=== PATIENT | female | born 1985 | race Caucasian/White ===

== ENCOUNTER 2016-04-06 17:44 | Emergency (ER) | payer OTHER ==
[~2016-04-06] VITALS: Ht 165.1 cm; Wt 85.1 kg
[~2016-04-06 17:44] MED LIST: MTR600X PO
[2016-04-06 17:53] VITALS: TEMP 36.8; Ht 165.1 cm; Wt 85.1 kg
[2016-04-06 18:59] LABS: PREG INTERNAL NEGATIVE QC NEG CLEAR BACKGROUND; PREG INTERNAL POSITIVE QC POS CONTROL LINE
[2016-04-06 19:08] VITALS: BP 135/88; PULSE 86; O2SAT 96
--- NOTE | 2016-04-07 15:47 | EMERGENCY ROOM VISIT NOTE ---
ED Visit Note First contact with patient: 17:53 Chief Complaint: I would like a blood test. History of Present Illness: Ms. Enrique is a 30-year-old white female who ambulates into the ED accompanied by her and children requesting a serum test. Patient reports she is 3 and para 2. Her last delivery was 11/01/2005. She reports after her delivery her normal menstrual cycle started and then stopped in mid January. She reports she has not had a menstrual cycle since that time. She is taken 3 home tests and they were negative. She reports she was into see her [facility] and they recommended that she start control to help regulate her hormones. She reports they did not do a serum and she is concerned because her last test was normal before her last child and only the serum was positive. Currently she is requesting a serum test. She is not having any complaints except for her missed period and is not having any symptoms or pain. Physical Examination: Vital Signs: Date Time Temp Pulse Resp B/P Pulse Ox O2 Delivery O2 Flow Rate FiO2 04/06/16 19:08 86 18 135/88 96 04/06/16 17:53 36.8 100 20 142/95 98 Room Air GENERAL: 30-year-old female in no acute distress, nontoxic-appearing, afebrile and hemodynamically stable. NEUROLOGICAL: Awake, alert and oriented to person, place and time. Answering questions appropriately and following commands. ED Course: Patient is assessed as noted above. Laboratory Testing: Test 04/06/16 18:05 Range/Units Human Chorionic Gonadotropin, Qual NEG NEG Clinical Impression: Negative test. Disposition: Patient discharged home in stable condition accompanied by her ; prior to departure she reported she continue tab no symptoms. Plan: Patient was encouraged to follow-up with her [facility] [employer] [facility] physician for her change in menstrual cycles. Patient was encouraged return the ED for any vaginal bleeding, abdominal pain or any new/concerning symptoms.
== END 2016-04-06 19:08 | disposition home or self-care (01) ==
LOC: C.EDB 17:44 → C.EDD 19:08
DX: Z32.02 Encounter for pregnancy test, result negative (principal); Z98.890 Other specified postprocedural states

== ENCOUNTER 2016-09-06 19:46 | Emergency (ER) | payer OTHER ==
[~2016-09-06] VITALS: Ht 170.2 cm; Wt 85.8 kg
[2016-09-06 19:51] VITALS: TEMP 36.8; Ht 170.2 cm; Wt 85.8 kg
--- NOTE | 2016-09-06 20:11 | EMERGENCY ROOM VISIT NOTE ---
History Report prepared by Carina: Rosi Rogel Under the Supervision of: Dr. Jules Guaman D.O. First contact with patient: 19:54 Chief Complaint: TEST REQUEST Stated Complaint: NEED A BLOOD TEST TO FIND OUT IF History of Present Illness The patient is a 31 year old female who presents to the Emergency Room with a request for a test, today. The patient states that her last menstrual cycle was August 03. She states that she has a history of five previous pregnancies, noting that she has two children, had two abortions, and 1 miscarriage. The patient states that when she was recently with her daughter, she took 12-15 home tests that were all negative, but when she came to the emergency department and had a blood test, she tested positive. She denies being on any daily medications. The patient states that she has been feeling nauseous. She states that she does not follow with a primary care physician. The patient states that she follows with Rosa Lombardi OB/ [employer]. Source of History: patient Onset: today Position: other (global) Quality: other ( test request) Associated Symptoms: + nausea Review of Systems See HPI for pertinent positives & negatives. A total of 10 systems reviewed and were otherwise negative. Past Medical & Surgical Medical Problems: (1) and not yet delivered in first trimester (2) Premature rupture of membranes Family History Diabetes mellitus Hypertension Social History Smoking Status: Current Every Day Smoker Alcohol Use: none Housing Status: lives with family Occupation Status: employed Current/Historical Medications No Active Prescriptions or Reported Meds Allergies Coded Allergies: No Known Allergies (Unverified , 10/30/15) Physical Exam Vital Signs Date Time Temp Pulse Resp B/P (MAP) Pulse Ox O2 Delivery O2 Flow Rate FiO2 09/06/16 21:03 101 18 113/75 98 Room Air 09/06/16 19:51 36.8 86 16 136/84 96 Room Air Physical Exam GENERAL: Patient is awake, alert, and in no acute distress. Patient is resting comfortably and showing no signs of anxiety EYES: The conjunctivae are clear. The pupils are round and reactive. EARS, NOSE, MOUTH AND THROAT: The nose is without any evidence of any deformity. Mucous membranes are moist tongue is midline NECK: The neck is nontender and supple. RESPIRATORY: Normal respiratory effort is noted there is no evidence of wheezing rhonchi or rales CARDIOVASCULAR: Regular rate and rhythm noted there no murmurs rubs or gallops normal S1 normal S2 GASTROINTESTINAL: The abdomen is soft. Bowel sounds are present in all quadrants. Abdomen is nontender MUSCULOSKELETAL/EXTREMITIES: There is no evidence of gross deformity full range of motion is noted in the hips and shoulders SKIN: There is no obvious evidence of any rash. There are no petechiae, pallor or cyanosis noted. NEUROLOGIC: Patient is awake alert and oriented x3 strength is symmetric patellar reflexes are 2+ bilaterally Medical Decision & Procedures Laboratory Results Test 09/06/16 19:57 Human Chorionic Gonadotropin, Qual NEG (NEG) Laboratory results per my review. ED Course 1957: The patient was evaluated in room C9. A complete history and physical examination were performed. 2042: I reevaluated the patient and she is resting comfortably. I discussed the exam findings with her and I discussed the treatment plan. She verbalized complete understating and agreement. She is ready to go home. Medical Decision Nursing notes reviewed. The patient is a 31-year-old female who presented to the emergency department requesting a blood test for . The patient thought she was because her period was late. The patient did not have a physical exam consistent with an acute surgical abdomen. Bedside ultrasound did not reveal any intrauterine and her blood test was negative for . The patient was encouraged to stop smoking and follow-up with her doctor. She was also encouraged to continue to monitor for and return to the emergency apartment immediately if symptoms change worsen or the need arises. Medication Reconcilliation Current Medication List: was personally reviewed by me Blood Pressure Screening Patient's blood pressure: Normal blood pressure Impression Primary Impression: Encounter for test with result negative Scribe Attestation The scribe's documentation has been prepared under my direction and personally reviewed by me in its entirety. I confirm that the note above accurately reflects all work, treatment, procedures, and medical decision making performed by me. Departure Information Dispostion Home / Self-Care Prescriptions No Active Prescriptions or Reported Meds Referrals Teresa Dowell M.D. (PCP) Forms HOME CARE DOCUMENTATION FORM, IMPORTANT VISIT INFORMATION, WORK / SCHOOL INSTRUCTIONS Patient Instructions ED Smoking Cessation, [facility] Additional Instructions Follow-up with your family for further evaluation.
[2016-09-06 20:38] LABS: PREG INTERNAL NEGATIVE QC NEG CLEAR BACKGROUND; PREG INTERNAL POSITIVE QC POS CONTROL LINE
[2016-09-06 21:03] VITALS: BP 113/75; PULSE 101; O2SAT 98
== END 2016-09-06 21:04 | disposition home or self-care (01) ==
LOC: C.EDB 19:47 → C.EDC 21:04
DX: Z32.02 Encounter for pregnancy test, result negative (principal); Z83.3 Family history of diabetes mellitus; Z82.49 Family history of ischemic heart disease and other diseases of the circulatory system; F17.200 Nicotine dependence, unspecified, uncomplicated

== ENCOUNTER 2016-11-28 11:03 | Emergency (ER) | payer OTHER ==
[~2016-11-28] VITALS: Ht 170.2 cm; Wt 89.7 kg
[2016-11-28 11:04] VITALS: TEMP 37; Ht 170.2 cm; Wt 89.7 kg
[2016-11-28] MEDS ORDERED: IBUPROFEN 600 MG TAB PO STA (11:14)
--- NOTE | 2016-11-28 11:56 | DIAGNOSTIC IMAGING REPORT ---
RIGHT HAND 3 VIEWS CLINICAL HISTORY: Right hand pain an injury. FINDINGS: 3 views of the right hand are obtained. No prior studies are available for comparison at the time of dictation. The skeletal structures are well mineralized. There is no radiographic evidence of right hand fracture. There is a tiny lucency questioned in the scaphoid. The joint spaces of the hand are well-maintained. The overlying soft tissues are within normal limits. IMPRESSION: 1. There is no radiographic evidence of right hand fracture. 2. There is a questionable lucency suggested in the scaphoid with no cortical disruption. This may represent artifact. Correlate for point tenderness at this site. If there is clinical concern for scaphoid fracture consider dedicated wrist views. Electronically signed by: Steven Miranda M.D. 11/28/2016 11:55 AM Dictated Date/Time: 11/28/2016 11:52 AM
--- NOTE | 2016-11-28 12:12 | EMERGENCY ROOM VISIT NOTE ---
ED Visit Note First contact with patient: 11:10 CHIEF COMPLAINT: Right Hand injury HISTORY OF PRESENT ILLNESS: This 31-year-old female presents the ER with chief complaint of right hand pain. The patient states that she had her right hand on a metal baby gate 3 days ago but states she only got pain starting last evening and got more severe overnight. The patient has not taken anything for pain. The patient states that she has a lump on the dorsal aspect of her hand but she thinks it was there before. She had a hairline fracture in her right hand when she was a child. The patient denies any wrist pain. She does admit that sometimes the pain radiates up the ulnar aspect of her forearm. She denies any numbness and tingling in her fingers. She is right-hand dominant. REVIEW OF SYSTEMS:6 system review was performed and was negative unless stated otherwise in history of present illness. PMH: The patient is healthy; prior right hand fracture SOCIAL HISTORY: Patient lives with her daughter. Patient admits to tobacco use but denies any alcohol use. PHYSICAL EXAM: Vital Signs: Were reviewed Reviewed Nurse's notes. GENERAL: 31- year-old white female appears in no acute distress. MENTAL Status: Alert and oriented 3. RIGHT HAND: The patient has a bony prominence at the base of the third metacarpal. No other bony abnormalities noted. The patient has full range of motion of her fingers. The patient has tenderness palpation over the dorsal aspect of the hand. The skin is intact. Negative Danitza's, negative Phalen's EMERGENCY DEPARTMENT COURSE: The patient was evaluated. The patient was given Motrin 600 mg by mouth for pain. X-ray of the right hand was ordered interpreted by the radiologist and myself. DIAGNOSTICS:RIGHT HAND 3 VIEWS CLINICAL HISTORY: Right hand pain an injury. FINDINGS: 3 views of the right hand are obtained. No prior studies are available for comparison at the time of dictation. The skeletal structures are well mineralized. There is no radiographic evidence of right hand fracture. There is a tiny lucency questioned in the scaphoid. The joint spaces of the hand are well-maintained. The overlying soft tissues are within normal limits. IMPRESSION: 1. There is no radiographic evidence of right hand fracture. 2. There is a questionable lucency suggested in the scaphoid with no cortical disruption. This may represent artifact. Correlate for point tenderness at this site. If there is clinical concern for scaphoid fracture consider dedicated wrist views. Electronically signed by: Steven Miranda M.D. 11/28/2016 11:55 AM The patient was informed of the findings. The patient did not have any point tenderness at the area of concern on the x-ray. The patient was discharged home in stable condition. DIAGNOSIS: Right Hand contusion DISCHARGE INSTRUCTIONS & TREATMENT: Rest hand as much as possible over the next several days. Ibuprofen 600 mg every 6 hours with food for pain. If symptoms persist or worsen, follow-up with your family doctor. Current/Historical Medications No Active Prescriptions or Reported Meds Allergies Coded Allergies: No Known Allergies (Unverified , 10/30/15) Vital Signs Date Time Temp Pulse Resp B/P (MAP) Pulse Ox O2 Delivery O2 Flow Rate FiO2 11/28/16 11:04 37.0 89 18 138/89 98 Room Air Medications Administered Medications (Trade) Dose Ordered Sig/Donta Route Start Time Stop Time Status Last Admin Dose Admin Ibuprofen (Motrin Tab) 600 mg NOW STAT PO 11/28/16 11:14 11/28/16 11:16 DC 11/28/16 11:14 600 MG Departure Information Prescriptions No Active Prescriptions or Reported Meds Referrals No Doctor, Assigned (PCP) Patient Instructions [facility]
[2016-11-28 12:20] VITALS: BP 123/85; PULSE 86; O2SAT 96
== END 2016-11-28 12:22 | disposition home or self-care (01) ==
LOC: C.EDB 11:03 → C.EDD 12:22
DX: S60.221A Contusion of right hand, initial encounter (principal); X58.XXXA Exposure to other specified factors, initial encounter; Z72.0 Tobacco use

== ENCOUNTER 2018-10-18 08:22 | Inpatient (IN) ==
--- OUTSIDE RECORDS SUMMARY | 2018-10-18 08:25 | External Medical Summary | Continuity of Care Document ---
:1985 Author Name Nba Armendariz Address Unavailable Unavailable , Care Team Providers Name Role Phone Unavailable Unavailable Unavailable Problems Active medical history not documented Allergies and Adverse Reactions Allergy history not documented Medications Medications not documented Procedures Procedures not documented Immunizations Immunizations not documented Plan of Treatment Planned Observations Planned Goals not documented Results No Known Results Results not documented
[2018-10-18] MEDS ORDERED: MoRPHine SULFATE 4 MG/ML 1 ML CARP\\VIAL IV STA (08:42)
[2018-10-18] MEDS ORDERED: SODIUM CHLORIDE 0.9% 1000ML 1,000 ML IV ONE ×2 (08:42→10:46)
[2018-10-18] MEDS ORDERED: ONDANSETRON INJ 2 MG/ML 2 ML VIAL IV STA (08:42)
--- NOTE | 2018-10-18 08:44 | Emergency Department Note ---
History of Present Illness General Chief complaint: Abdominal Pain Stated complaint: RT SIDED ABD PAIN,VOMITING Time Seen by Provider: 10/18/18 08:31 History of Present Illness Maximum Pain Intensity: 7 33-year-old female who presents to emergency department with complaint of rather severe right flank pain, nausea, vomiting and feeling dehydrated. The patient also reports feeling chilled. The patient reports that she felt fine last evening, and woke up this morning around 5:30 AM with the symptoms. She reports that the pain is constant and sharp in nature. The pain does not wax or wane. The patient reports that she has had recent increased urinary frequency and urgency without dysuria or hematuria. She does report a prior history of UTI, but reports that this feels different. Last menstruation was approximately 2.5 weeks ago. The patient denies history of ovarian cysts, appendicitis or pyelonephritis. The patient has no alleviating or aggravating factors for the pain. She currently rates her discomfort a 7 out of 10. 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 Beliefs That Will Affect Care: None marital status: Current Living Situation: Family current occupational status: employed Feels Safe at Home: Yes Smoking Status: Current every day smoker Age Started Using Tobacco: 16 ; Hx Alcohol Use: No Hx Substance Use: No Review of Systems 10 system review was performed and was negative except for pertinent positives and negatives as indicated in history of present illness Physical Exam Vital Signs Vital Signs - 24 hr 10/18/18 08:24 10/18/18 09:03 10/18/18 09:09 Temperature 38.5 C H Temperature Source Oral Sepsis Recent Fever Within 48 Hours No Sepsis New/Unexplained Change in Mental Status No Sepsis Action Taken by Nursing No Action Required Pulse Rate 115 H 100 H 101 H Pulse Rate [Right Finger] Pulse Rate from SpO2 Sensor 101 H 100 H Respiratory Rate 20 23 23 Respiratory Effort / Characteristics Respiratory Depth Respiratory Pattern Blood Pressure 116/75 112/65 Blood Pressure [Left Arm] Blood Pressure Mean 88 80 Blood Pressure Mean [Left Arm] Pulse Oximetry 100 99 96 Oxygen Delivery Method Room Air 10/18/18 09:30 10/18/18 09:36 10/18/18 10:00 Temperature 38.4 C H Temperature Source Oral Sepsis Recent Fever Within 48 Hours Sepsis New/Unexplained Change in Mental Status Sepsis Action Taken by Nursing Pulse Rate 104 H 101 H Pulse Rate [Right Finger] Pulse Rate from SpO2 Sensor 105 H Respiratory Rate 26 H 28 H Respiratory Effort / Characteristics Respiratory Depth Respiratory Pattern Blood Pressure 110/67 Blood Pressure [Left Arm] Blood Pressure Mean 81 Blood Pressure Mean [Left Arm] Pulse Oximetry 94 Oxygen Delivery Method 10/18/18 10:13 10/18/18 10:15 10/18/18 10:30 Temperature Temperature Source Sepsis Recent Fever Within 48 Hours Sepsis New/Unexplained Change in Mental Status Sepsis Action Taken by Nursing Pulse Rate 100 H 96 H Pulse Rate [Right Finger] 99 H Pulse Rate from SpO2 Sensor 100 H 96 H Respiratory Rate 26 H 16 23 Respiratory Effort / Characteristics Non-Labored Spontaneous Respiratory Depth Normal Respiratory Pattern Regular Blood Pressure 94/49 L 95/56 L Blood Pressure [Left Arm] 94/49 L Blood Pressure Mean 64 69 Blood Pressure Mean [Left Arm] 64 Pulse Oximetry 94 95 94 Oxygen Delivery Method Room Air 10/18/18 11:00 Temperature Temperature Source Sepsis Recent Fever Within 48 Hours Sepsis New/Unexplained Change in Mental Status Sepsis Action Taken by Nursing Pulse Rate 100 H Pulse Rate [Right Finger] Pulse Rate from SpO2 Sensor 101 H Respiratory Rate 20 Respiratory Effort / Characteristics Respiratory Depth Respiratory Pattern Blood Pressure 108/76 Blood Pressure [Left Arm] Blood Pressure Mean 86 Blood Pressure Mean [Left Arm] Pulse Oximetry 97 Oxygen Delivery Method CONSTITUTIONAL: Healthy and well nourished. Patient appears in moderate discomfort, and is shivering with a warm blanket on her. HEENT: Normocephalic, atraumatic. Pupils equal, round and reactive. No scleral icterus or conjunctival injection/pallor. Mucous membranes are dry. No tonsillar hypertrophy, erythema or exudates. NECK: Full active range of motion without discomfort. LYMPHATICS: No cervical chain adenopathy. RESPIRATORY: Clear to auscultation bilaterally with no wheezing, crackles, rhonchi or stridor. CARDIOVASCULAR: Regular rate and rhythm with no murmurs, rubs or gallops. GASTROINTESTINAL: Bowel sounds present in all quadrants. Patient does not have any focal abdominal tenderness to palpation. Negative McBurney's point tenderness. Mildly positive right CVA tenderness. No abdominal rigidity, guarding or rebound. Negative Rovsing sign. Negative heel tap. MUSCULOSKELETAL: Full range of motion of all joints without discomfort. INTEGUMENTARY: No rash or other significant dermatologic conditions noted. HEMATOLOGIC: No ecchymosis or petechiae. PSYCHIATRIC: Positive affect. NEUROLOGIC: No focal neurologic deficits noted. Course Patient history and physical exam were performed. Nurse's notes were reviewed. Vital signs were reviewed, showing the patient is febrile with an oral temperature of 38.5 C. She is also tachycardic at 115 bpm. Blood pressure was initially normal. IV access was established, and labs were drawn. Patient was hydrated with a liter normal saline, and administered IV morphine, Zofran and Tylenol. Initial urine dip shows a negative , with trace ketonuria and hematuria. The sample was contaminated. Review of additional labs shows an elevated white count with left shift and bandemia. CMP and lipase were otherwise normal. C-reactive protein is mildly elevated. Zizmn-sb-bhed lactate was normal. CT of the abdomen and pelvis with IV contrast is concerning for a right renal abscess. Upon reevaluation, the patient was noted to be hypotensive, tachycardic and continued with a fever. At this point, I became concerned for sepsis. The case was further discussed with Dr. Ariza, ED attending physician, who recommended consultation with urology and the hospitalist service. The case was initially discussed with Dr. Nava, [facility] urologist who recommended IV antibiotics and admission. She will closely follow the patient as she may need referral to [facility] for interventional radiology drainage if her symptoms worsen. I discussed the case further with the patient, expressing my concern for possible sepsis, and the patient agreed with admission. After this discussion with the patient, Dr. Nava called back and recommended that the patient undergo a urine cath collection prior to antibiotic administration. I also discussed the case further with the [facility] hospitalist group. As Dr. Chaney was on his way to the emergency department to evaluate the patient, I was advised by the nurse that the patient was refusing admission, refusing a straight cath urine collection and blood cultures. After the patient was evaluated by the hospitalist service, the patient eventually agreed to admission, but continued to refuse a straight cath urine collection. Blood cultures x2 were ordered and are pending. The patient was administered Zosyn 4.5 g IV infusion. The patient was also administered a second liter of normal saline after concerns for possible sepsis. Please see hospitalist and urology dictations for further treatment and final disposition. Administered Medications Potassium Chloride/Sodium Chloride (Normal Saline W/20 Meq Kcl) 20 meq in 1,000 mls @ 125 mls/hr IV .Q8H KATHY Stop: 11/17/18 12:45 Last Admin: 10/18/18 14:17 Dose: 125 mls/hr Documented by: [id number] Piperacillin Sod/Tazobactam (Sod 3.375 gm/ Dextrose) 115 mls @ 28.75 mls/hr IV Q8H KATHY; Protocol Stop: 10/28/18 15:59 Last Admin: 10/18/18 16:18 Dose: 28.8 mls/hr Documented by: [id number] Ketorolac Tromethamine (Toradol) 15 mg IV Q6H PRN PRN Reason: Pain Stop: 10/20/18 12:45 Last Admin: 10/18/18 13:04 Dose: 15 mg Documented by: [id number] Nicotine (Nicoderm Cq) 14 mg TD QAM KATHY Stop: 11/17/18 12:45 Last Admin: 10/18/18 14:16 Dose: 14 mg Documented by: [id number] Discontinued Medications Sodium Chloride (Nss 1000ml) 1,000 mls @ 999 mls/hr IV .Q1H1M ONE Stop: 10/18/18 09:42 Last Infusion: 10/18/18 12:13 Dose: 0 mls/hr Documented by: [id number] Infusion: 10/18/18 12:13 Dose: 0 mls/hr Documented by: [id number] Admin: 10/18/18 09:00 Dose: 999 mls/hr Documented by: [id number] Acetaminophen (Ofirmev) 1,000 mg in 100 mls @ 400 mls/hr IV NOW STA Stop: 10/18/18 08:59 Last Infusion: 10/18/18 12:13 Dose: 0 mls/hr Documented by: [id number] Admin: 10/18/18 08:59 Dose: 400 mls/hr Documented by: [id number] Sodium Chloride (Nss 1000ml) 1,000 mls @ 999 mls/hr IV .Q1H1M ONE Stop: 10/18/18 11:46 Last Infusion: 10/18/18 12:26 Dose: 0 mls/hr Documented by: [id number] Admin: 10/18/18 11:12 Dose: 999 mls/hr Documented by: [id number] Piperacillin Sod/Tazobactam Sod (Zosyn) 4.5 gm in 120 mls @ 240 mls/hr IV NOW ONE Stop: 10/18/18 11:24 Last Infusion: 10/18/18 12:27 Dose: 0 mls/hr Documented by: [id number] Admin: 10/18/18 11:12 Dose: 240 mls/hr Documented by: [id number] Ioversol (Optiray 320 100ml) 95 ml IV ONCE PRN PRN Reason: Interaction Checking Stop: 10/22/18 09:54 Last Admin: 10/18/18 09:56 Dose: 95 ml Documented by: [id number] Morphine Sulfate (Morphine Sulfate) 4 mg IV NOW STA Stop: 10/18/18 08:43 Last Admin: 10/18/18 10:12 Dose: Not Given Documented by: [id number] Ondansetron HCl (Zofran) 4 mg IV NOW STA Stop: 10/18/18 08:43 Last Admin: 10/18/18 09:00 Dose: 4 mg Documented by: [id number] Potassium Chloride (Klor-Con M10) 20 meq PO NOW ONE Stop: 10/18/18 12:06 Last Admin: 10/18/18 12:18 Dose: 20 meq Documented by: [id number] Potassium Chloride (Klor-Con M10) Confirm Administered Dose 20 meq PO .STK-MED ONE Stop: 10/18/18 12:17 Last Admin: 10/18/18 12:24 Dose: Not Given Documented by: [id number] Medical Decision Making Medical Records Attestation: I reviewed the patient's medical records. Home Medications Current Medication List: was personally reviewed by me Laboratory Data Attestation: I reviewed the patient's lab results. Result diagrams: 10/18/18 08:55 10/18/18 08:55 Lab Results 10/18/18 10/18/18 10/18/18 Range/Units 08:40 08:40 08:40 WBC (4.8-10.8) K/uL RBC (4.2-5.4) M/uL Hgb (12.0-16.0) g/dL Hct (37-47) % MCV (80-100) fL MCH (25-34) pg MCHC (32-36) g/dL RDW Std Deviation (36.4-46.3) fL RDW Coeff of Afsaneh (11.5-14.5) % Plt Count (130-400) K/uL MPV (7.4-10.4) fL Immature Gran % (Auto) % Neut % (Auto) % Lymph % (Auto) % [place] % (Auto) % Eos % (Auto) % Baso % (Auto) % Immature Gran # (Auto) (0.00-0.02) K/uL Neut # (Auto) (1.4-6.5) K/uL Lymph # (Auto) (1.2-3.4) K/uL [place] # (Auto) (0.11-0.59) K/uL Eos # (Auto) (0-0.5) K/uL Baso # (Auto) (0-0.2) K/uL Sodium (136-145) mmol/L Potassium (3.5-5.1) mmol/L Chloride (98-107) mmol/L Carbon Dioxide (21-32) mmol/L Anion Gap (3-11) BUN (7-18) mg/dl Creatinine (0.6-1.2) mg/dl Est Cr Clr Drug Dosing ml/min Est GFR ( Amer) Est GFR (Non-Af Amer) BUN/Creatinine Ratio (10-20) Glucose (70-99) mg/dl Calcium (8.5-10.1) mg/dl Total Bilirubin (0.2-1) mg/dl AST (15-37) U/L ALT (12-78) U/L Alkaline Phosphatase (45-117) U/L C-Reactive Protein (0-0.29) mg/dl Total Protein (6.4-8.2) gm/dl Albumin (3.4-5.0) gm/dl Globulin (2.5-4.0) gm/dl Albumin/Globulin Ratio (0.9-2) Lipase (73-393) U/L Urine Color Yellow Urine Appearance Clear (Clear) Urine pH 6.0 (4.5-7.5) POC Urine pH 7 (4.5-7.5) Ur Specific [place] 1.016 (1.000-1.030) Urine Protein Negative (Negative) POC Urine Protein Trace H (Negative) Urine Glucose (UA) Negative (Negative) POC Ur Glucose (UA) Normal (Normal) Urine Ketones Negative (Negative) POC Urine Ketones Negative (Negative) Urine Blood 1+ H (Negative) POC Urine Blood Trace H (Negative) Urine Nitrite Negative (Negative) POC Urine Nitrite Negative (Negative) Urine Bilirubin Negative (Negative) POC Urine Bilirubin Negative (Negative) Urine Urobilinogen Negative (Negative) POC Urine Urobilinogen Normal (Normal) Ur Leukocyte Esterase Trace H (Negative) POC U Leukocyte Esteras Negative (Negative) Urine WBC (Auto) 1-5 (0-5) /hpf Urine RBC (Auto) 5-10 H (0-4) /hpf U Hyaline Cast (Auto) 1-5 (0-5) /lpf U Epithel Cells (Auto) >30 H (0-5) /lpf Urine Bacteria (Auto) 1+ H (Negative) POC Ur Test NEG (NEG) 10/18/18 10/18/18 Range/Units 08:55 08:55 WBC 12.02 H (4.8-10.8) K/uL RBC 5.02 (4.2-5.4) M/uL Hgb 15.0 (12.0-16.0) g/dL Hct 41.8 (37-47) % MCV 83.3 (80-100) fL MCH 29.9 (25-34) pg MCHC 35.9 (32-36) g/dL RDW Std Deviation 37.9 (36.4-46.3) fL RDW Coeff of Afsaneh 12.6 (11.5-14.5) % Plt Count 207 (130-400) K/uL MPV 9.4 (7.4-10.4) fL Immature Gran % (Auto) 0.3 % Neut % (Auto) 85.0 % Lymph % (Auto) 7.0 % [place] % (Auto) 7.3 % Eos % (Auto) 0.2 % Baso % (Auto) 0.2 % Immature Gran # (Auto) 0.04 H (0.00-0.02) K/uL Neut # (Auto) 10.21 H (1.4-6.5) K/uL Lymph # (Auto) 0.84 L (1.2-3.4) K/uL [place] # (Auto) 0.88 H (0.11-0.59) K/uL Eos # (Auto) 0.03 (0-0.5) K/uL Baso # (Auto) 0.02 (0-0.2) K/uL Sodium 141 (136-145) mmol/L Potassium 3.4 L (3.5-5.1) mmol/L Chloride 109 H (98-107) mmol/L Carbon Dioxide 26 (21-32) mmol/L Anion Gap 6.0 (3-11) BUN 13 (7-18) mg/dl Creatinine 0.79 (0.6-1.2) mg/dl Est Cr Clr Drug Dosing 113.6 ml/min Est GFR ( Amer) 114.8 Est GFR (Non-Af Amer) 99.1 BUN/Creatinine Ratio 16.9 (10-20) Glucose 103 H (70-99) mg/dl Calcium 8.8 (8.5-10.1) mg/dl Total Bilirubin 0.6 (0.2-1) mg/dl AST 14 L (15-37) U/L ALT 30 (12-78) U/L Alkaline Phosphatase 79 (45-117) U/L C-Reactive Protein 1.12 H (0-0.29) mg/dl Total Protein 6.9 (6.4-8.2) gm/dl Albumin 3.7 (3.4-5.0) gm/dl Globulin 3.2 (2.5-4.0) gm/dl Albumin/Globulin Ratio 1.1 (0.9-2) Lipase 174 (73-393) U/L Urine Color Urine Appearance (Clear) Urine pH (4.5-7.5) POC Urine pH (4.5-7.5) Ur Specific [place] (1.000-1.030) Urine Protein (Negative) POC Urine Protein (Negative) Urine Glucose (UA) (Negative) POC Ur Glucose (UA) (Normal) Urine Ketones (Negative) POC Urine Ketones (Negative) Urine Blood (Negative) POC Urine Blood (Negative) Urine Nitrite (Negative) POC Urine Nitrite (Negative) Urine Bilirubin (Negative) POC Urine Bilirubin (Negative) Urine Urobilinogen (Negative) POC Urine Urobilinogen (Normal) Ur Leukocyte Esterase (Negative) POC U Leukocyte Esteras (Negative) Urine WBC (Auto) (0-5) /hpf Urine RBC (Auto) (0-4) /hpf U Hyaline Cast (Auto) (0-5) /lpf U Epithel Cells (Auto) (0-5) /lpf Urine Bacteria (Auto) (Negative) POC Ur Test (NEG) Imaging Data Attestation: I personally reviewed and interpreted this imaging study as follows: My Impression: CT of the abdomen and pelvis with IV contrast does not show evidence for acute appendicitis, diverticulitis or bowel obstruction. Radiologist does question the possibility of a right renal abscess. Radiologist report was reviewed. Radiologist's Impression: CT SCAN OF THE ABDOMEN AND PELVIS WITH IV CONTRAST CLINICAL HISTORY: Fever. Right flank pain. Nausea and vomiting. COMPARISON STUDY: Pelvic ultrasound dated 11/12/2005. TECHNIQUE: Following the IV administration of 95 cc of Optiray 320, CT scan of the abdomen and pelvis is performed from the lung bases to the proximal femora. Images are reviewed in the axial, sagittal, and coronal planes. IV contrast was administered without complication. A dose lowering technique was utilized adhering to the principles of ALARA. CT DOSE: 605.31 mGy.cm FINDINGS: Lung bases: The heart is normal in size and without pericardial effusion. There is significant dependent atelectasis. The lung bases are otherwise clear. A tiny hiatal hernia is observed. Liver: The contrast-enhanced liver is normal in size, contour, and attenuation. There is no intrahepatic biliary ductal dilatation. The hepatic veins and portal veins are patent. Gallbladder: Unremarkable. Spleen: The spleen is mildly enlarged measuring 13.3 cm in length. Pancreas: Unremarkable. Adrenal glands: Unremarkable. Kidneys: The contrast enhanced kidneys are normal in size and without hydronephrosis. There is slightly heterogeneous perfusion of the right kidney. There is a 1.7 cm low-attenuation fluid collection is seen in the interpolar right kidney on image #174 with faint surrounding inflammation. The appearance is concerning for a small renal abscess. Minimal urothelial thickening suggested in the right renal pelvis. The left kidney is normal in appearance. There are least 2 small nonobstructing calculi in the lower pole of the right kidney. At least 3 small nonobstructing calculi are present in the left kidney. Abdominal vasculature: The abdominal aorta is normal in course and caliber noting mild atherosclerotic calcification. Bowel: The small bowel and colon are normal in course and caliber. The appendix is well-visualized and normal. Peritoneum: There is no intraperitoneal free air or abdominal ascites. Lymphadenopathy: None. Pelvic viscera: The bladder, uterus, and adnexa are normal as visualized noting bilateral ovarian follicles. Skeletal structures: No lytic or blastic lesions are seen. IMPRESSION: 1. There is slightly heterogeneous enhancement of the right kidney. 2. A 1.7 cm low-attenuation fluid collection is identified in the right kidney with mild surrounding inflammation. This is concerning for small renal abscess. Correlation with clinical findings and urinalysis will be required. 3. The left kidney is normal in appearance. 4. Bilateral nephrolithiasis. 5. Additional findings as above. Blood Pressure Blood Pressure Findings: Low blood pressure MDM Narrative Patient presents to emergency department with complaint of right flank pain. The patient was noted to be febrile on initial evaluation. CT imaging is concerning for a right renal abscess. The case was further discussed with urology, who recommended admission with IV antibiotics. CT of the abdomen does not show evidence for appendicitis, diverticulitis or other acute findings. Patient does have a mild leukocytosis with left shift and bandemia. The patient did develop hypotension while in the emergency department, which was concerning for possible sepsis. The patient was administered IV Zosyn, as well as 2 L of normal saline prior to transfer to the hospitalist service. Impression & Plan Renal abscess, right, Sepsis Critical Care Time Critical Care Time: Yes Total Critical Care Time: 40 I have personally spent approximately 40 minutes of critical care time in the direct management of this patient. This includes bedside care, interpretation of diagnostic studies, and testing, discussion with consultants, patient, and family members, and other required patient management activities. This 40 minutes is in excess of all separately billable procedures. Discharge Plan Visit Data *Final* Discharge Date/Time: 10/18/18 12:27 Chief Complaint: Abdominal Pain Stated Complaint: RT SIDED ABD PAIN,VOMITING ED Provider: Tommie Ariza ED Midlevel Provider: Kehinde Robertson Discharge Problem: Renal abscess, right, Sepsis Patient Disposition: Admitted As Inpatient Discharge Instructions Interventions: ED Discharge Assessment Last Done: 10/18/18 12:27
[2018-10-18] MEDS ORDERED: ACETAMINOPHEN 1,000 MG/100 ML VIAL IV STA (08:45)
[2018-10-18 08:50] LABS: POC Urine Bilirubin Negative (Negative); POC Urine Blood Trace (Negative); POC Urine Glucose Normal (Normal); POC Urine Ketones Negative (Negative); POC Urine Leukocytes Negative (Negative); POC Urine Nitrite Negative (Negative); POC Urine Protein Trace (Negative); POC Urine Urobilinogen Normal (Normal); POC Urine pH 7 (4.5-7.5)
[2018-10-18 08:58] LABS: Appearance Urine Clear (Clear); Bacteria Urine Automated 1+ (Negative); Bilirubin Urine Negative (Negative); Blood Urine 1+ (Negative); Color Urine Yellow; Epithelial Cell Urine Auto >30 /lpf (0-5); Glucose Urine UA Negative (Negative); Ketones Urine Negative (Negative); Leukocyte Esterase Urine Trace (Negative); Nitrite Urine Negative (Negative); Protein Urine Negative (Negative); Specific Gravity Urine 1.016 (1.000-1.030); Urobilinogen Urine Negative (Negative)
[2018-10-18 09:07] LABS: Basophils # (auto) 0.02 K/uL (0-0.2); Basophils % (auto) 0.2 %; Eosinophils # (auto) 0.03 K/uL (0-0.5); Eosinophils % (auto) 0.2 %; Hematocrit (blood only) 41.8 % (37-47); Immature Granulocytes # (auto) 0.04 K/uL (0.00-0.02); Immature Granulocytes % (auto) 0.3 %; Lymphocytes # (auto) 0.84 K/uL (1.2-3.4); Mean Corpuscular Hemoglobin 29.9 pg (25-34); Mean Corpuscular Hgb Conc 35.9 g/dL (32-36); Mean Corpuscular Volume 83.3 fL (80-100); Mean Platelet Volume 9.4 fL (7.4-10.4); Monocytes # (auto) 0.88 K/uL (0.11-0.59); Monocytes % (auto) 7.3 %; Neutrophils # (auto) 10.21 K/uL (1.4-6.5); Platelet Count 207 K/uL (130-400); RDW Coefficient of Variation 12.6 % (11.5-14.5); RDW Standard Deviation 37.9 fL (36.4-46.3); Red Blood Count 5.02 M/uL (4.2-5.4); White Blood Count 12.02 K/uL (4.8-10.8)
[2018-10-18 09:23] LABS: Albumin Level 3.7 gm/dl (3.4-5.0); BUN Creatinine Ratio 16.9 (10-20); C Reactive Protein 1.12 mg/dl (0-0.29); Calcium 8.8 mg/dl (8.5-10.1); Creatinine Clr Calc Pharmacy 113.6 ml/min; Est GFR (African American) 114.8; Est GFR (Non-African American) 99.1; Potassium 3.4 mmol/L (3.5-5.1)
[2018-10-18 09:26] LABS: Albumin Globulin Ratio 1.1 (0.9-2); Bilirubin,Total 0.6 mg/dl (0.2-1); Globulin 3.2 gm/dl (2.5-4.0); Total Protein 6.9 gm/dl (6.4-8.2)
[2018-10-18] MEDS ORDERED: IOVERSOL 100ml IV PRN (09:55)
--- NOTE | 2018-10-18 10:07 | CT Scan Report ---
CT SCAN OF THE ABDOMEN AND PELVIS WITH IV CONTRAST CLINICAL HISTORY: Fever. Right flank pain. Nausea and vomiting. COMPARISON STUDY: Pelvic ultrasound dated 11/12/2005. TECHNIQUE: Following the IV administration of 95 cc of Optiray 320, CT scan of the abdomen and pelvi s is performed from the lung bases to the proximal femora. Images are reviewed in the axial, sagittal , and coronal planes. IV contrast was administered without complication. A dose lowering technique wa s utilized adhering to the principles of ALARA. CT DOSE: 605.31 mGy.cm FINDINGS: Lung bases: The heart is normal in size and without pericardial effusion. There is significant depend ent atelectasis. The lung bases are otherwise clear. A tiny hiatal hernia is observed. Liver: The contrast-enhanced liver is normal in size, contour, and attenuation. There is no intrahepa tic biliary ductal dilatation. The hepatic veins and portal veins are patent. Gallbladder: Unremarkable. Spleen: The spleen is mildly enlarged measuring 13.3 cm in length. Pancreas: Unremarkable. Adrenal glands: Unremarkable. Kidneys: The contrast enhanced kidneys are normal in size and without hydronephrosis. There is slight ly heterogeneous perfusion of the right kidney. There is a 1.7 cm low-attenuation fluid collection is seen in the interpolar right kidney on image #174 with faint surrounding inflammation. The appearanc e is concerning for a small renal abscess. Minimal urothelial thickening suggested in the right renal pelvis. The left kidney is normal in appearance. There are least 2 small nonobstructing calculi in t he lower pole of the right kidney. At least 3 small nonobstructing calculi are present in the left ki dney. Abdominal vasculature: The abdominal aorta is normal in course and caliber noting mild atheroscleroti c calcification. Bowel: The small bowel and colon are normal in course and caliber. The appendix is well-visualized a nd normal. Peritoneum: There is no intraperitoneal free air or abdominal ascites. Lymphadenopathy: None. Pelvic viscera: The bladder, uterus, and adnexa are normal as visualized noting bilateral ovarian fol licles. Skeletal structures: No lytic or blastic lesions are seen. IMPRESSION: 1. There is slightly heterogeneous enhancement of the right kidney. 2. A 1.7 cm low-attenuation fluid collection is identified in the right kidney with mild surrounding inflammation. This is concerning for small renal abscess. Correlation with clinical findings and urin alysis will be required. 3. The left kidney is normal in appearance. 4. Bilateral nephrolithiasis. 5. Additional findings as above. Electronically signed by: Steven Miranda M.D. 10/18/2018 10:06 AM
[2018-10-18] MEDS ORDERED: PIPERACILL/TAZOBAC CONSULT ACTIVE PRN (10:55)
[2018-10-18] MEDS ORDERED: PIPERACILLIN/TAZOBACTAM 4.5 GM/120 ML BAG IV ONE (10:55)
--- NOTE | 2018-10-18 11:29 | History & Physical Report ---
Date of Service October 18, 2018 Assessment & Plan (1) Sepsis: (2) Complicated UTI (urinary tract infection): (3) Renal abscess, right: This is a 33-year-old female with PMH of migraine history and tobacco use who presents with right-sided abdominal pain and flank pain starting this morni ng and was found to have sepsis 2/2 complicated UTI and right renal abscess. -Febrile at 38.5, hypotension at 94/49 and tachycardia at 115, leukocytosis of 12, evidence of abnormal UA. Lactic acid pending -CT abdomen pelvis with evidence of 1.7 cm low-attenuation fluid collection is identified in the right kidney with mild surrounding inflammation. This is concerning for small renal abscess as well as bilateral nephrolithiasis -ED provider discussed with urology. Dr. Elijah cano to start with IV antibiotic treatment. If abscess grows or patient clinically worsens, low threshold for transfer to tertiary care facility -Started empiric Zosyn. MRSA swab pending -Blood and urine cultures obtained -Continue IV fluid resuscitation -Urology consulted (4) Tobacco use disorder: Endorses smoking 1/2 ppd x 17 years -Nicotine patch ordered DVT Ppx: DANG hose, early ambulation Code status: FULL PCP: No PCP. Would like to establish with Rosa upon discharge Dispo: Admitted to telemetry. Plan to return home once medically stable. Patient seen in collaboration with Dr. Chaney. Please see addendum. History of Present Illness Primary Care Provider: NO PCP This is a 33-year-old female with PMH of migraine history and tobacco use who presents with right-sided abdominal pain and flank pain starting this morning. Patient woke up with right-sided pain that she described as sharp and constant without radiation. Associated with fever and chills as well as nausea. During car ride over to emergency room, patient vomited 6 times. Denies any diarrhea or constipation. Denies any dysuria or hematuria. No history of kidney stones. Endorses dull headache for the past week that felt similar to previous migraines. No lightheadedness, visual changes, chest pain or shortness of breath. Denies taking any home medications. Endorses smoking 1/2 ppd x 17 years. Patient presented with fever of 38.5, hypotension at 94/49 and tachycardia at 115. CT abdomen pelvis with evidence of 1.7 cm low-attenuation fluid collection is identified in the right kidney with mild surrounding inflammation. This is concerning for small renal abscess as well as bilateral nephrolithiasis. Blood and urine cultures obtained and patient started on Zosyn for empiric antibiotic treatment. 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 Physical Exam Physical Exam: General Appearance: WD/WN, vitals as above, NAD, sitting up in bed, appears acutely ill, obese Head: normocephalic, atraumatic Eyes: normal inspection, PERRL, conjunctivae normal, anicteric sclerae ENT: external ear and nose normal, oropharynx normal Neck: trachea midline, no thyromegaly normal visual inspection Respiratory: normal respiratory effort, lungs clear to auscultation, no wheeze, rales, rhonchi. Normal insp/exp effort, no accessory muscle use Cardiovascular: regular rate, rhythm, no murmur, normal peripheral pulses. Vessels: no JVD or carotid bruit Chest: normal inspection of chest Abdomen/GI: normal bowel sounds, soft, nontender, no hepatosplenomegaly : Right CVA tenderness Extremities/Musculoskelatal: no cyanosis or clubbing, extremities motor strength 5/5 Neurologic: PERRL, EOMI, accommodation nl, no face palsy, no dysarthria CN's II-XI intact bilaterally and moves all extremities Psychiatric: A+Ox3, anxious mood Skin: no rashes, normal color, warm/dry Results & Data Vital Signs (Past 12 Hours) Vital Signs Temp Pulse Pulse Resp BP BP Pulse Ox 10/18/18 11:00 100 H 20 108/76 97 10/18/18 10:30 96 H 23 95/56 L 94 10/18/18 10:15 99 H 16 94/49 L 95 10/18/18 10:13 100 H 26 H 94/49 L 94 10/18/18 10:00 101 H 28 H 10/18/18 09:36 38.4 C H 10/18/18 09:30 104 H 26 H 110/67 94 10/18/18 09:09 101 H 23 96 10/18/18 09:03 100 H 23 112/65 99 10/18/18 08:24 38.5 C H 115 H 20 116/75 100 Laboratory Results Short CBC 10/18/18 Range/Units 08:55 WBC 12.02 H (4.8-10.8) K/uL Hgb 15.0 (12.0-16.0) g/dL Hct 41.8 (37-47) % Plt Count 207 (130-400) K/uL BMP 10/18/18 08:55 Sodium 141 Potassium 3.4 L Chloride 109 H Carbon Dioxide 26 BUN 13 Creatinine 0.79 Glucose 103 H Calcium 8.8 Liver Function 10/18/18 Range/Units 08:55 Total Bilirubin 0.6 (0.2-1) mg/dl AST 14 L (15-37) U/L ALT 30 (12-78) U/L Alkaline Phosphatase 79 (45-117) U/L Albumin 3.7 (3.4-5.0) gm/dl Urine 10/18/18 Range/Units 08:40 Urine Color Yellow Urine Appearance Clear (Clear) Urine pH 6.0 (4.5-7.5) Ur Specific Camp 1.016 (1.000-1.030) Urine Protein Negative (Negative) Urine Glucose (UA) Negative (Negative) Diagnostic Findings CT abd/pelvis: IMPRESSION: 1. There is slightly heterogeneous enhancement of the right kidney. 2. A 1.7 cm low-attenuation fluid collection is identified in the right kidney with mild surrounding inflammation. This is concerning for small renal abscess. Correlation with clinical findings and urinalysis will be required. 3. The left kidney is normal in appearance. 4. Bilateral nephrolithiasis. 5. Additional findings as above. Code Status & VTE Plan VTE Prophylaxis Plan VTE Prophylaxis will be ordered: Yes Supervising Physician Co-Signing Physician Notes Patient is a 33-year-old female with no significant past medical history presents with history of right-sided abdominal, flank pain since this morning. Reports associated fever, chills, nausea, frontal headache but denies any dysuria, hematuria. CT abdomen showed findings suggestive of right renal abscess, nephrolithiasis. Urine analysis is abnormal suggestive of possible UTI. Please review HPI for complete details of presentation. On exam patient is obese, no apparent distress, normocephalic, lungs are clear to auscultation, S1-S2, no murmur, abdomen soft nontender, no guarding or rigidity right CVA tenderness, grossly no focal neurological deficits, no pedal edema. Patient is admitted for management of sepsis likely secondary to complicated UTI, right renal abscess. Agree with IV fluids, IV antibiotics-Zosyn, pain control, cultures obtained. Consider adding Vancomycin if MRSA screen is positive. Consulted urology for input. Plan to repeat renal ultrasound in a.m. to assess progression of renal abscess. If does not improve, will need interventional radiology to drain the abscess. I personally reviewed the record. Patient is interviewed and examined at bedside. Patient's care is coordinated with Giselle Cardozo PA-C. Please refer to the documentation above for details of patient's presentation and for discussion of other issues.
[2018-10-18] MEDS ORDERED: POTASSIUM CHLORIDE 10 MEQ TABCR PO ONE ×2 (12:05→12:16)
[2018-10-18] MEDS ORDERED: ACETAMINOPHEN 325 MG TAB PO PRN (12:46)
[2018-10-18] MEDS ORDERED: ONDANSETRON INJ 2 MG/ML 2 ML VIAL IV PRN (12:46)
[2018-10-18] MEDS ORDERED: ACETAMINOPHEN 65 ML IV PRN (12:46)
[2018-10-18] MEDS ORDERED: POLYETHYLENE (MIRALAX) 17 GM PACK PO PRN (12:46)
[2018-10-18] MEDS: KETOROLAC TROMETHAMINE 15 MG/ML VIAL IV PRN (13:04)
[2018-10-18] MEDS: NICOTINE 14 MG/24 HR PATCH TD SCH (14:16)
[2018-10-18] MEDS: NSS + 20MEQ KCL 20 MEQ/1,000 ML BAG IV SCH ×2 (14:17→21:26)
--- NOTE | 2018-10-18 16:10 | Urology Consultation ---
Date of Consultation October 18, 2018 Assessment & Plan (1) Renal abscess, right: small right renal abscess I am optimistic this will respond to iv antibiotics cath urine sent from ER as voided sample seemed contaminated with skin cells On zosyn now, will adjust as cultures return If she should worsen clinically then she will need transfer to [facility] for interventional radiology to drain the abscess. SHe is young and healthy so this is most likely going to respond to iv antibiotic treatment alone. I would suggest stone removal in future as outpatient as the stones can act as a reservoir for bacteria. Present on Admission?: Yes History of Present Illness Reason for Consultation: right renal abscess Requesting Physician: Dr Homa Thakur Attending Physician: Maria Ines Thakur MD History of Present Illness I am asked by Dr Thakur and Mr Robertson to evaluate and treat patient for right renal abscess. She woke up this am at 5:30 with right flank pain. She also had shaking chills and nausea with emesis. She had worsening headaches earlier in the week. She presented to ER and was found to be febrile. CT with iv contract shows a right small mid kidney abscess. She hs not had a kidney infection before. CT also shows small non obstructing kidney stones bilaterally. She has not had a prior diagnosis of kidney stones. She is admitted on Zosyn. Her bp was low upon admission but improved with fluids. 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 Fam Hx- mother had thyroid cancer, maternal aunt had unknown type cancer, no one had utis or kidney stones that she knows of, no early CAD in family ROS + fevers + chills, + nausea, + emesis, no constipation of diarrhea, + headaches worse lately, poor appetite, no rash, no chest pain, no SOB, + minor cough Physical Exam Constitutional: well developed, well nourished, + ill appearing, + well hydrated, average body habitus, well groomed and cooperative Respiratory: normal respiratory effort, lungs clear to auscultation Gastrointestinal (Abdomen): normal bowel sounds, soft, nontender, no hepatosplenomegaly Inspection/Auscultation: normal bowel sounds Percussion/Palpation: + abdomen tender (rt flank is tender to even light percussion ) and abdomen soft Skin: no rashes, warm and dry normal turgor Psychiatric: A+Ox3, euthymic affect Orientation: alert and oriented x 3 Apperance: appropriately groomed and appeared stated age Eye Contact: good eye contact Speech: normal rate/rhythm/volume of speech Thought Process: goal directed thought process, linear/logical thought process and clear/coherent thought process Results & Data Vital Signs (Past 12 Hours) Vital Signs Temp Pulse Pulse Resp BP BP Pulse Ox 10/18/18 15:25 38.5 C H 100 H 16 126/81 97 10/18/18 12:51 37.3 C 105 H 19 112/71 100 10/18/18 12:18 104/73 10/18/18 12:08 37.1 C 10/18/18 11:30 99 H 26 H 118/71 98 10/18/18 11:00 100 H 20 108/76 97 10/18/18 10:30 96 H 23 95/56 L 94 10/18/18 10:15 99 H 16 94/49 L 95 10/18/18 10:13 100 H 26 H 94/49 L 94 10/18/18 10:00 101 H 28 H 10/18/18 09:36 38.4 C H 10/18/18 09:30 104 H 26 H 110/67 94 10/18/18 09:09 101 H 23 96 10/18/18 09:03 100 H 23 112/65 99 10/18/18 08:24 38.5 C H 115 H 20 116/75 100
[2018-10-18] MEDS: PIPERACILLIN/TAZOBACTAM 3.375 GM in DEXTROSE 5% 100 ML IV SCH (16:18)
[2018-10-18] MEDS ORDERED: ACETAMINOPHEN 1,000 MG/100 ML VIAL IV PRN (18:53)
[2018-10-19] MEDS: PIPERACILLIN/TAZOBACTAM 3.375 GM in DEXTROSE 5% 100 ML IV SCH ×3 (00:27→16:21)
[2018-10-19] MEDS: KETOROLAC TROMETHAMINE 15 MG/ML VIAL IV PRN ×2 (00:29→11:55)
[2018-10-19] MEDS: NSS + 20MEQ KCL 20 MEQ/1,000 ML BAG IV SCH ×2 (06:03→15:21)
[2018-10-19 07:14] LABS: Hematocrit (blood only) 35.6 % (37-47); Hemoglobin 12.3 g/dL (12.0-16.0); Mean Corpuscular Hemoglobin 29.3 pg (25-34); Mean Corpuscular Hgb Conc 34.6 g/dL (32-36); Mean Corpuscular Volume 84.8 fL (80-100); Mean Platelet Volume 9.7 fL (7.4-10.4); Platelet Count 170 K/uL (130-400); RDW Coefficient of Variation 12.7 % (11.5-14.5); RDW Standard Deviation 39.2 fL (36.4-46.3); White Blood Count 9.14 K/uL (4.8-10.8)
[2018-10-19 07:21] LABS: BUN Creatinine Ratio 14.6 (10-20); Calcium 7.6 mg/dl (8.5-10.1); Creatinine Clr Calc Pharmacy 156.5 ml/min; Est GFR (African American) 141.4; Potassium 3.2 mmol/L (3.5-5.1)
--- NOTE | 2018-10-19 08:31 | Ultrasound Report ---
RENAL ULTRASOUND HISTORY: Reassess renal abscess COMPARISON: Abdomen and pelvis CT 10/18/2018. FINDINGS: Right kidney: 13.3 cm. There is a 2.1 cm thick-walled hypoechoic focus within the anterior interpolar region of the right kidney. This corresponds to the suspected abscess and remains unchanged. This is best seen on axial image 18. No hydronephrosis. Left kidney: 13.7 cm. No hydronephrosis. Normal corticomedullary differentiation and cortical thickne ss. Bladder: Bladder wall thickening may be due to underdistention. IMPRESSION: No change in the 2.1 cm thick-walled hypoechoic focus within the right kidney. This corresponds to th e suspected abscess and remains unchanged. Electronically signed by: Joshua Chapa M.D. 10/19/2018 8:29 AM
[2018-10-19] MEDS: NICOTINE 14 MG/24 HR PATCH TD SCH (08:36)
--- NOTE | 2018-10-19 12:21 | Urology Progress Note ---
Date of Service October 19, 2018 Assessment & Plan (1) Renal abscess, right: small right renal abscess Clinically is responding to iv antibiotics On zosyn now, will adjust as cultures return If she should worsen clinically then she will need transfer to [facility] for interventional radiology to drain the abscess. SHe is young and healthy so this is most likely going to respond to iv antibiotic treatment alone. I would suggest stone removal in future as outpatient as the stones can act as a reservoir for bacteria. will need to see her for check up in about 2 weeks and to plan follow up imaging and stone surgery. Subjective Patient feels slightly improved. Right flank pain still present but less severe. had 2 fevers yesterday. urine and blood growing GNR. White count down a bit today. CO2 on chem 7 showing a bit more acidosis. Tolerating a diet decently well. Tolerating iv abt no problem. Review of Systems Review of Systems: All systems reviewed & are unremarkable except as noted in HPI & below had the fevers and feels very tired but otherwise improving Physical Exam Physical Exam: lying in bed. Has good color today, is alert and awake, has eaten about half of her lunch eyes- alert no scleral icterus speech is fluid and coherent. Results & Data Vital Signs (Past 12 Hours) Vital Signs Temp Pulse Resp BP Pulse Ox 10/19/18 08:11 37.6 C H 94 H 18 104/60 98 10/19/18 03:00 37.5 C 90 16 90/48 L 97 10/19/18 00:23 38.8 C H 106 H 16 91/57 L 94
[2018-10-19] MEDS ORDERED: ACETAMINOPHEN 325 MG TAB ONE (16:34)
[2018-10-19] MEDS ORDERED: MoRPHine SULFATE 2 MG/ML CARP IV STA (16:34)
[2018-10-19] MEDS ORDERED: BUTALBITAL/ASPIRIN/CAFFEINE 1 TAB TAB PO PRN (16:34)
[2018-10-19] MEDS ORDERED: MoRPHine SULFATE 2 MG/ML CARP IV PRN (16:34)
[2018-10-19] MEDS ORDERED: ACETAMINOPHEN SOL 650 MG/20.3 ML UDC PO PRN (16:34)
[2018-10-19] MEDS ORDERED: ACETAMINOPHEN 325 MG TAB PO STA (16:52)
[2018-10-19] MEDS ORDERED: HYDROmorphone INJ 1 MG/ML SYRINGE IV PRN (16:54)
[2018-10-19] MEDS: LACTATED RINGER'S 1,000 ML IV SCH (17:30)
[2018-10-19 18:04] LABS: Basophils # (auto) 0.02 K/uL (0-0.2); Basophils % (auto) 0.2 %; Eosinophils # (auto) 0.03 K/uL (0-0.5); Eosinophils % (auto) 0.3 %; Hematocrit (blood only) 34.6 % (37-47); Hemoglobin 12.1 g/dL (12.0-16.0); Immature Granulocytes # (auto) 0.02 K/uL (0.00-0.02); Immature Granulocytes % (auto) 0.2 %; Lymphocytes % (auto) 22.2 %; Mean Corpuscular Hemoglobin 29.8 pg (25-34); Mean Corpuscular Volume 85.2 fL (80-100); Mean Platelet Volume 9.7 fL (7.4-10.4); Monocytes # (auto) 1.02 K/uL (0.11-0.59); Monocytes % (auto) 9.9 %; Neutrophils # (auto) 6.96 K/uL (1.4-6.5); Neutrophils % (auto) 67.2 %; Platelet Count 179 K/uL (130-400); RDW Coefficient of Variation 12.8 % (11.5-14.5); RDW Standard Deviation 39.4 fL (36.4-46.3); Red Blood Count 4.06 M/uL (4.2-5.4); White Blood Count 10.35 K/uL (4.8-10.8)
[2018-10-19] MEDS: IMIPENEM/CILASTATIN SODIUM 500 MG in DEXTROSE 5% 100 ML IV SCH (18:13)
--- NOTE | 2018-10-19 18:28 | Hospitalist Progress Note ---
Date of Service October 19, 2018 Assessment & Plan (1) Severe sepsis: Criteria presents with fever tachycardia mild leukocytosis, Source of infection right renal abscess Assist with complicated UTI Urine culture gram-negative bacilli, 2 sets of blood culture growing gram- negative bacilli as well Patient was empirically treated with IV Zosyn Continue to spike fever Blood cultures ordered Antibiotic changed to imipenem ID evaluation requested CT abdomen pelvis, renal ultrasound shows right renal abscess Patient input from urology recommends conservative treatment with antibiotic for now For any deconditioning, patient will be transferred to tertiary care for IR guided drainage of abscess (2) Complicated UTI (urinary tract infection): Complicated UTI causing a pyelonephritis leading to renal abscess on right side Management as outlined above (3) Renal abscess, right: This is a 33-year-old female with PMH of migraine history and tobacco use who presents with right-sided abdominal pain and flank pain starting this morning and was found to have sepsis 2/2 complicated UTI and right renal abscess. -Febrile at 38.5, hypotension at 94/49 and tachycardia at 115, leukocytosis of 12, evidence of abnormal UA. Lactic acid pending -CT abdomen pelvis with evidence of 1.7 cm low-attenuation fluid collection is identified in the right kidney with mild surrounding inflammation. This is concerning for small renal abscess as well as bilateral nephrolithiasis Appreciate input from urology, Dr. Nava, mention continue to empiric antibiotic Antibiotic changed to imipenem in the setting of from negative bacteremia Continue monitor very closely, If patient continues to spike temperature, repeated blood culture growing bacteria in spite of antibiotic treatment for more than 24 hours, may need IR guided drainage of abscess which will require transfer patient to tertiary care/[facility] (4) Tobacco use disorder: Endorses smoking 1/2 ppd x 17 years -Nicotine patch ordered DVT Ppx: DANG hose, early ambulation Code status: FULL PCP: No PCP. Would like to establish with Rosa upon discharge Dispo: Admitted to telemetry. Plan to return home once medically stable. Patient seen in collaboration with Dr. Chaney. Please see addendum. (5) Gram-negative bacteremia: Secondary to complicated UTI/pyelonephritis and right renal abscess Antibiotic adjusted, repeat blood culture ordered ID eval requested Low threshold to transfer to tertiary care for IR guided drainage of abscess if patient's clinical status declines in spite of broad-spectrum antibiotic and supportive care CODE STATUS: Full code DVT prophylaxis: SCD and teds patient is encouraged to ambulate Disposition: To be determined Subjective Patient seen in morning, was afebrile feeling fine right flank pain has improved no nausea vomiting tolerating diet well Was transferred to medical floor Repeat evaluation to patient in the afternoon for change in clinical status Spiked temperature 38.1 With tachycardia Developed worsening of pain on right flank area, Blood culture growing gram-negative bacilli Reports of poor appetite headache muscle ache Cultures ordered, antibiotic changed to imipenem Low threshold to transfer patient to telemetry with any change or decline in hemodynamics status Physical Exam Constitutional: + acute distress (Due to headache right flank pain) Eyes: PERRL, conjunctivae normal, anicteric sclerae ENMT: external ear and nose normal, oropharynx normal Neck: trachea midline, no thyromegaly Respiratory: normal respiratory effort, lungs clear to auscultation Cardiovascular: RRR, no murmur, no edema Gastrointestinal (Abdomen): normal bowel sounds, soft, nontender, no hepatosplenomegaly Right flank pain Musculoskeletal: no cyanosis or clubbing, extremities motor strength 5/5 Skin: no rashes, warm and dry Psychiatric: Orientation: alert and oriented x 3 Mood: + anxious mood Genitourinary: + CVA tenderness (Right CVA tenderness) Results & Data Vital Signs (Past 12 Hours) Vital Signs Temp Pulse Resp BP Pulse Ox 10/19/18 16:02 38.1 C H 91 H 20 116/78 100 10/19/18 08:11 37.6 C H 94 H 18 104/60 98
[2018-10-19 18:32] LABS: Albumin Level 2.8 gm/dl (3.4-5.0); BUN Creatinine Ratio 12.7 (10-20); Calcium 8.3 mg/dl (8.5-10.1); Creatinine Clr Calc Pharmacy 133.5 ml/min; Est GFR (African American) 134.1; Est GFR (Non-African American) 115.7; Potassium 3.3 mmol/L (3.5-5.1)
[2018-10-19 18:37] LABS: Albumin Globulin Ratio 0.9 (0.9-2); Bilirubin,Total 0.7 mg/dl (0.2-1); Total Protein 5.8 gm/dl (6.4-8.2)
[2018-10-19] MEDS ORDERED: POTASSIUM CHLORIDE 20 MEQ TABCR PO STA (18:40)
[2018-10-19] MEDS: ACETAMINOPHEN 1,000 MG/100 ML VIAL IV SCH (21:17)
[2018-10-20] MEDS: IMIPENEM/CILASTATIN SODIUM 500 MG in DEXTROSE 5% 100 ML IV SCH ×3 (00:12→12:28)
[2018-10-20] MEDS: LACTATED RINGER'S 1,000 ML IV SCH ×2 (03:20→09:25)
[2018-10-20] MEDS: ACETAMINOPHEN 1,000 MG/100 ML VIAL IV SCH ×2 (05:26→13:28)
[2018-10-20 05:55] LABS: Hematocrit (blood only) 34.1 % (37-47); Hemoglobin 11.8 g/dL (12.0-16.0); Mean Corpuscular Hemoglobin 29.2 pg (25-34); Mean Corpuscular Hgb Conc 34.6 g/dL (32-36); Mean Corpuscular Volume 84.4 fL (80-100); Mean Platelet Volume 9.9 fL (7.4-10.4); Platelet Count 172 K/uL (130-400); RDW Coefficient of Variation 12.8 % (11.5-14.5); RDW Standard Deviation 39.3 fL (36.4-46.3); Red Blood Count 4.04 M/uL (4.2-5.4); White Blood Count 8.86 K/uL (4.8-10.8)
[2018-10-20 06:25] LABS: BUN Creatinine Ratio 13.7 (10-20); Creatinine Clr Calc Pharmacy 159.2 ml/min; Est GFR (African American) 142.2; Est GFR (Non-African American) 122.7; Potassium 3.7 mmol/L (3.5-5.1)
[2018-10-20] MEDS: NICOTINE 14 MG/24 HR PATCH TD SCH (08:03)
--- NOTE | 2018-10-20 09:11 | Infectious Disease Consult ---
Date of Consultation October 20, 2018 Assessment & Plan (1) Gram negative sepsis: can continue IV abx for now, suspect gnr in blood will be E. coli as well. repeat cultures pending, afebrile and clinically improved. anxious to go home. I agree no indication for drainage, likely will resolve with abx alone. I would like to give her 3 weeks of abx with plan for followup ct prior to end date of abx to reassess and ensure collection has resolved, she does understand that if collection remains she will need extended course of abx and possibly drainge. she is planning to follow with urology as well. she can be transitioned to po levaquin, 500mg daily if gnr in blood culture sensitive. would give 21 days. (2) Renal abscess, right: History of Present Illness Attending Physician: Maria Ines Thakur MD pt seen for E. coli urine infection and gnr sepsis, 10/18 blood cultures growing gnr, 10/19 pending. She was admitted with right sided abd pain and fever. tmax 10/18 39.4, 10/19 38.8, now afebrile. ct done revealed a 1.7cm collection c/w abscess. She has been on Imipenem and tolerating well. Urology following, no plans for drainage but she does have f/u plan post d/c. Today she states she is feeling significantly better, no abd pain, no flank pain, no f/c. Asking to go home eating well. no n/v/d. no cp, sob, cough. no gu symptoms, ua only 1-5 wbc but culture grew E. coli, resistant to amp/sulbactam and bactrim. She has no allergies. 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 Beliefs That Will Affect Care: None marital status: Current Living Situation: Family current occupational status: employed Feels Safe at Home: Yes Smoking Status: Current every day smoker Age Started Using Tobacco: 16 ; Hx Alcohol Use: No Hx Substance Use: No Review of Systems Review of Systems: All systems reviewed & are unremarkable except as noted in HPI & below Physical Exam Constitutional: WD/WN, vitals as above Eyes: PERRL, conjunctivae normal, anicteric sclerae ENMT: external ear and nose normal, oropharynx normal Neck: normal visual inspection Respiratory: normal respiratory effort, lungs clear to auscultation Cardiovascular: RRR, no murmur, no edema Gastrointestinal (Abdomen): normal bowel sounds, soft, nontender, no hepatosplenomegaly Musculoskeletal: no cyanosis or clubbing, extremities motor strength 5/5 Skin: no rashes, warm and dry Psychiatric: A+Ox3, euthymic affect Results & Data Vital Signs (Past 12 Hours) Vital Signs Temp Pulse Resp BP Pulse Ox 10/20/18 07:15 36.6 C 87 18 108/64 95 10/19/18 22:43 37.0 C 90 20 102/71 96 Laboratory Results Microbiology 10/18/18 11:53 Blood Aerobic Blood Culture - Preliminary Escherichia coli 10/18/18 11:53 Blood Anaerobic Blood Culture - Preliminary No growth in Anaerobic bottle after 24 hours. 10/18/18 11:50 Blood Aerobic Blood Culture - Preliminary Escherichia coli 10/18/18 11:50 Blood Anaerobic Blood Culture - Preliminary No growth in Anaerobic bottle after 24 hours. 10/18/18 08:40 Urine,Clean Catch Urine Culture - Preliminary Escherichia coli PG Care Time/CCT Total # of Minutes Spent Total Time Spent with Patient: Total time spent is greater than 50% in coordination of care (as documented) at patient's floor/unit and/or counseling patient:
[2018-10-20] MEDS ORDERED: Nursing to Pharmacy Communication ONE (11:47)
--- NOTE | 2018-10-20 13:32 | Discharge Summary ---
Date of Service October 20, 2018 Admission HPI Per Admitting Provider This is a 33-year-old female with PMH of migraine history and tobacco use who presents with right-sided abdominal pain and flank pain starting this morning. Patient woke up with right-sided pain that she described as sharp and constant without radiation. Associated with fever and chills as well as nausea. During car ride over to emergency room, patient vomited 6 times. Denies any diarrhea or constipation. Denies any dysuria or hematuria. No history of kidney stones. Endorses dull headache for the past week that felt similar to previous migraines. No lightheadedness, visual changes, chest pain or shortness of breath. Denies taking any home medications. Endorses smoking 1/2 ppd x 17 years. Patient presented with fever of 38.5, hypotension at 94/[address] tachycardia at 115[address] CT abdomen pelvis with evidence of 1.7 cm low-attenuation fluid collection is identified in the right kidney with mild surrounding inflammation. This is concerning for small renal abscess as well as bilateral nephrolithiasis. Blood and urine cultures obtained and patient started on Zosyn for empiric antibiotic treatment. Principal Diagnosis COMPLICATED URINARY TRACT INFECTION, PYELONEPHRITIS WITH RIGHT RENAL ABSCESS Discharge Exam Constitutional + acute distress (Due to headache right flank pain) Eyes PERRL, conjunctivae normal, anicteric sclerae ENMT external ear and nose normal, oropharynx normal Neck trachea midline, no thyromegaly Respiratory normal respiratory effort, lungs clear to auscultation Cardiovascular RRR, no murmur, no edema Gastrointestinal (Abdomen) normal bowel sounds, soft, nontender, no hepatosplenomegaly Musculoskeletal no cyanosis or clubbing, extremities motor strength 5/5 Skin no rashes, warm and dry Psychiatric Orientation: alert and oriented x 3 Mood: + anxious mood Genitourinary + CVA tenderness (Right CVA tenderness) Discharge Data Allergies Allergy/AdvReac Type Severity Reaction Status Date / Time No Known Allergies Allergy Unverified 10/18/18 09:09 Consultations 10/18/18 10:55 ED Decision to Admit Stat 10/18/18 12:46 Consult Urology Routine 10/19/18 16:53 Consult Infectious Diseases Routine Ordered Studies 10/18/18 08:45 CT abd pelvis IV con only Stat 10/19/18 08:14 US renal/blad retro comp Routine Hospital Course (1) Severe sepsis: Met criteria for severe sepsis on presentation: The ER admitted with with fever tachycardia mild leukocytosis, Source of infection right renal abscess Secondary to complicated UTI: Urine culture E. coli Blood culture growing E. coli as well CT abdomen pelvis, renal ultrasound shows right renal abscess Patient was empirically treated with IV Zosyn Continued to spike fever Repeat blood cultures ordered Antibiotic changed to imipenem She has been afebrile overnight, lactic acid normal level mild elevation of procalcitonin normal vitals, right flank pain completely resolved, no nausea vom iting no chills Very eager to be discharged home today ID evaluation requested Appreciate input, antibiotic can be changed to p.o. Levaquin will need total 3 weeks treatment Patient will need CT abdomen pelvis with IV contrast prior to completion of antibiotic to assess for renal abscess in the right side May need IR guided drainage of renal abscess at a tertiary care, if [facility] shows persistent collection of pus or abscess after antibiotic treatment (2) Complicated UTI (urinary tract infection): Urine culture: E. coli sensitivity available, leading to gram-negative bacteremia( E. coli) Complicated UTI causing a pyelonephritis leading to renal abscess on right side Management as outlined above (3) Renal abscess, right: This is a 33-year-old female with PMH of migraine history and tobacco use who presents with right-sided abdominal pain and flank pain starting this morning and was found to have sepsis 2/2 complicated UTI and right renal abscess. -Febrile at 38.5, hypotension at 94/49 and tachycardia at 115, leukocytosis of 12, evidence of abnormal UA. Lactic acid within normal limit -CT abdomen pelvis with evidence of 1.7 cm low-attenuation fluid collection is identified in the right kidney with mild surrounding inflammation. This is concerning for small renal abscess as well as bilateral nephrolithiasis Appreciate input from urology, Dr. Nava, mention continue to empiric antibiotic Clinic follow-up in 2 weeks Patient clinically improved, antibiotic changed to Levaquin p.o. as per urine and blood culture growth and sensitivity (4) Tobacco use disorder: Endorses smoking 1/2 ppd x 17 years -Nicotine patch ordered (5) Gram-negative bacteremia: Secondary to complicated UTI/pyelonephritis and right renal abscess Acute sepsis blood culture positive for E. coli(urine culture growth: E. coli) ID eval requested Appreciate input Patient is discharged home with p.o. Levaquin, outpatient follow-up with urology to be CODE STATUS: Full code DVT prophylaxis: SCD and teds patient is encouraged to ambulate Disposition: Stable to be discharged home today Total Time Total Time Spent Total Time Spent (In Minutes): Approximately 40 minutes Total Time Includes: Examination of the Patient, Discharge Planning and Medication Reconciliation Discharge Plan Discharge Items Patient Disposition: Home - Self-Care Reason For Visit: COMPLICATED UTI WITH ABSCESS Discharge Diagnosis: COMPLICATED URINARY TRACT INFECTION, PYELONEPHRITIS WITH RIGHT RENAL ABSCESS Discharge Goals: Decrease discomfort, Diagnostic testing and Therapeutic intervention Activity: Resume your previous activity Non-emergency contact: Primary Care Provider Call non-emergency contact if: you have any medication questions Follow-up/Referrals: Nette Nava MD [Physician] - (Follow-up with Dr. Nava in 2 weeks) PCP,NO [Primary Care Provider] - Diet: Regular Addtl Provider Instructions: Please establish care with family physician, have hospital follow-up scheduled in a week Complete total 3 weeks(21 days) of antibiotic Take [id number] probiotics 23 times daily while taking antibiotic to prevent diarrhea, antibiotic induced gastroenteritis(C. difficile) Drink plenty of fluid Please return to ER or call your family physician, with any episode of worsening right sided pain, fever, chills, or blood in urine Urology follow-up with Dr. Nava in [address] abdomen pelvis with IV contrast in 2 weeks to assess for right renal abscess You may need drainage of right renal abscess at a tertiary care[facility]: If persistent abscess/collection of pus or infection noted on right kidney after antibiotic treatment Prescriptions: New levofloxacin [Levaquin] 500 mg tablet 500 mg PO DAILY 21 Days Qty: 21 RF: 0 No Action No Known Home Medications RF: 0 Stand-Alone Forms: Call Back Authorization, [employer], Work/School Release (Inpt) Krames/Other Patient Handouts: ED UTI Cystitis Female Discharge Orders: Discharge Order (Routine); Ordered 10/20/18 Ordered By: Maria Ines Thakur Admission Data Admit Date/Time: 10/18/18 11:08 Attending Provider: Maria Ines Thakur Admit Provider: Damon Chaney Primary Care Provider: PCP,NO Other Providers: Damon Chaney ; Nette Nava ; Chema Wynn Service: Medical Other Interventions: Discharge Summary Assessment (RN) Last Done: 10/20/18 13:33
== END 2018-10-20 14:15 | disposition home or self-care (01) | DRG 871 ==
LOC: ED 08:22 → 2E 11:08 → 4W 10-19 11:40
DX: F17.210 Nicotine dependence, cigarettes, uncomplicated; N15.1 Renal and perinephric abscess; A41.51 Sepsis due to Escherichia coli [E. coli]; N12 Tubulo-interstitial nephritis, not specified as acute or chronic

== ENCOUNTER 2021-08-25 07:58 | Inpatient (IN) ==
--- NOTE | 2021-08-25 09:29 | History & Physical Report ---
Date of Service August 25, 2021 Assessment & Plan (1) Complicated UTI (urinary tract infection): (2) Renal abscess, right: (3) Sepsis: (4) Severe sepsis: (5) Gram-negative bacteremia: (6) Gram negative sepsis: (7) Suspected 2019-nCoV infection: (8) COVID-19: (9) History of migraine: (10) Tobacco use disorder: (11) No significant past surgical history: Admission and Anticipated Discharge Date Admission Date: August 25, 2021 History of Present Illness Chief Complaint: pt 36 yr old IUP at 40 weeks and 2 days came in today for IOL for post dates. Pt denies regular uterine contractions, vaginal bleeding or leaking of fluid per vagina etc. Reports good movement. Primary Care Provider: NO PCP came in for IOL for post dates . 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 Allergies Allergy/AdvReac Type Severity Reaction Status Date / Time No Known Allergies Allergy Verified 03/27/21 07:52 Home Medications Medication Instructions Recorded Confirmed Type vitamin with calcium 1 tab PO DAILY 03/27/21 08/25/21 History no.72-iron 27 mg-folic acid 1 mg tablet ( Vitamins Plus Low Iron) Patient History Medical History (Updated 08/25/21 @ 08:26 by Cathi Frankel RN) Glucose intolerance During . Failed 1 hour glucola; Passed 3 hour glucola History of migraine SAB (spontaneous ) x 2 Smoker 1/2 pack per day. (spontaneous vaginal delivery) x 2 Tobacco use disorder Trisomy 21 This . UTI (urinary tract infection) Treated with Macrobid during . Surgical History (Updated 08/25/21 @ 08:24 by Cathi Frankel RN) No significant past surgical history [place] teeth extracted Social History (Updated 08/25/21 @ 08:28 by Cathi Frankel RN) Smoking Status: Current every day smoker Tobacco Type: Cigarettes Age Started Using Tobacco: 16; packs per day: 10; Cigarettes Per Day: 10; Do You Dip or Chew Tobacco: No; Hx Alcohol Use: No Hx Substance Use: No Preferred Language: Yakut Communication Ability: Effective Door Captain Required: No Beliefs That Will Affect Care: None marital status: marital status details: Single Current Living Situation: Family Current Living Situation Comment: Lives with 2 children 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[employer] Other Information That Helps Us Care for You: No Feels Safe at Home: Yes Safety Concerns: Feels Safe At This Time Assistive Devices: None OB History . X 2 No prior issues like PPH past pregnancies. Miscarriages x 2 Review of Systems All systems reviewed & are unremarkable except as noted in HPI & below Physical Exam Constitutional: well developed and well nourished Eyes: PERRL, conjunctivae normal, anicteric sclerae Respiratory: normal respiratory effort, lungs clear to auscultation Cardiovascular: RRR, no murmur, no edema Chest (Breasts): Chest: normal inspection of chest Gastrointestinal (Abdomen): normal bowel sounds, soft, nontender, no hepatosplenomegaly Skin: no rashes, warm and dry normal turgor Genitourinary: no vaginal lesions, no adnexal mass normal external appearance OB Exam Abdomen: + vertex Manual OB Exam: + cervical dilation fingertip, + cervical effacement 50% and + station high OB Exam Monitor Tracing: + external FHT monitor used Lymphatic: no cervical or axillary lymphadenopathy Results & Data ([facility]) Vital Signs (Past 12 Hours) Vital Signs Temp Pulse Resp BP 08/25/21 08:29 36.7 C 20 08/25/21 09:02 87 140/91 08/25/21 08:52 88 145/90 H 08/25/21 08:42 92 H 147/95 H 08/25/21 08:32 100 H 141/87 H 08/25/21 08:21 84 174/103 H Diagnostic Findings Induction of labor AMA Chromosomal abnormality of the Downs syndrome Monitoring External Monitor 140s, Good variability, positive accelerations Tocodynamometer Irregular uterine contractions Supervising Physician Co-Signing Physician Notes Admit to L and D Regular diet x 1 IV fluids labs Preeclamptic labs, Total urine Pr/ Cr ration CHEM 7 UA Cervidil placement for cervical ripening Pain meds including epidural eventually as the pt desires Antibiotics for GBS positive status when pt in active labor
--- NOTE | 2021-08-25 09:31 | History & Physical Report ---
Date of Service August 25, 2021 Assessment & Plan (1) Complicated UTI (urinary tract infection): (2) Renal abscess, right: (3) Sepsis: (4) Severe sepsis: (5) Gram-negative bacteremia: (6) Gram negative sepsis: (7) Suspected 2019-nCoV infection: (8) COVID-19: (9) History of migraine: (10) Tobacco use disorder: (11) No significant past surgical history: Admission and Anticipated Discharge Date Admission Date: August 25, 2021 History of Present Illness Primary Care Provider: NO PCP Pt 36 yr old came in for IOL for post dates . 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 Denies regular uterine contractions, vaginal bleeding , leaking of fluid per vagina etc. Repost good movement. Allergies Allergy/AdvReac Type Severity Reaction Status Date / Time No Known Allergies Allergy Verified 03/27/21 07:52 Home Medications Medication Instructions Recorded Confirmed Type vitamin with calcium 1 tab PO DAILY 03/27/21 08/25/21 History no.72-iron 27 mg-folic acid 1 mg tablet ( Vitamins Plus Low Iron) Patient History Medical History (Updated 08/25/21 @ 08:26 by Cathi Frankel RN) Glucose intolerance During . Failed 1 hour glucola; Passed 3 hour glucola History of migraine SAB (spontaneous ) x 2 Smoker 1/2 pack per day. (spontaneous vaginal delivery) x 2 Tobacco use disorder Trisomy 21 This . UTI (urinary tract infection) Treated with Macrobid during . Surgical History (Updated 08/25/21 @ 08:24 by Cathi Frankel RN) No significant past surgical history [place] teeth extracted Social History (Updated 08/25/21 @ 08:28 by Cathi Frankel RN) Smoking Status: Current every day smoker Tobacco Type: Cigarettes Age Started Using Tobacco: 16; packs per day: 10; Cigarettes Per Day: 10; Do You Dip or Chew Tobacco: No; Hx Alcohol Use: No Hx Substance Use: No Preferred Language: Maldivian Communication Ability: Effective Business Development Sales Executive Required: No Beliefs That Will Affect Care: None marital status: marital status details: Single Current Living Situation: Family Current Living Situation Comment: Lives with 2 children 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[employer] Other Information That Helps Us Care for You: No Feels Safe at Home: Yes Safety Concerns: Feels Safe At This Time Assistive Devices: None Review of Systems All systems reviewed & are unremarkable except as noted in HPI & below Physical Exam Constitutional: well developed and well nourished Eyes: PERRL, conjunctivae normal, anicteric sclerae Respiratory: normal respiratory effort, lungs clear to auscultation Cardiovascular: RRR, no murmur, no edema Chest (Breasts): Chest: normal inspection of chest Gastrointestinal (Abdomen): normal bowel sounds, soft, nontender, no hepatosplenomegaly Skin: no rashes, warm and dry normal turgor Genitourinary: no vaginal lesions, no adnexal mass normal external appearance OB Exam Abdomen: + vertex Manual OB Exam: + cervical dilation fingertip, + cervical effacement 50% and + station high OB Exam Monitor Tracing: + external FHT monitor used Lymphatic: no cervical or axillary lymphadenopathy Results & Data ([facility]) Vital Signs (Past 12 Hours) Vital Signs Temp Pulse Resp BP 08/25/21 08:29 36.7 C 20 08/25/21 09:02 87 140/91 08/25/21 08:52 88 145/90 H 08/25/21 08:42 92 H 147/95 H 08/25/21 08:32 100 H 141/87 H 08/25/21 08:21 84 174/103 H Supervising Physician Co-Signing Physician Notes Admit to L and D Regular diet x 1 IV fluids labs Preeclamptic labs, Total urine Pr/ Cr ration CHEM 7 UA Cervidil placement for cervical ripening Pain meds including epidural eventually as the pt desires Antibiotics for GBS positive status when pt in active labor
[2021-08-25] MEDS ORDERED: OXYTOCIN 30 UNITS/500 ML BAG IV PRN ×2 (09:41→13:53)
[2021-08-25] MEDS ORDERED: DINOPROSTONE 10 MG INSERT PV ONE (09:41)
--- NOTE | 2021-08-25 09:54 | History & Physical Report ---
Date of Service August 25, 2021 Assessment & Plan (1) Complicated UTI (urinary tract infection): (2) Renal abscess, right: (3) Sepsis: (4) Severe sepsis: (5) Gram-negative bacteremia: (6) Gram negative sepsis: (7) Suspected 2019-nCoV infection: (8) COVID-19: (9) History of migraine: (10) Tobacco use disorder: (11) No significant past surgical history: (12) Normal labor: Plan Continue Pitocin to augment labor pain meds including epidural as the pt desires Admission and Anticipated Discharge Date Admission Date: August 25, 2021 History of Present Illness Primary Care Provider: NO PCP Pt 36 yr old came in for IOL for post dates . 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 Denies regular uterine contractions, vaginal bleeding , leaking of fluid per vagina etc. Repost good movement. Allergies Allergy/AdvReac Type Severity Reaction Status Date / Time No Known Allergies Allergy Verified 03/27/21 07:52 Home Medications Medication Instructions Recorded Confirmed Type vitamin with calcium 1 tab PO DAILY 03/27/21 08/25/21 History no.72-iron 27 mg-folic acid 1 mg tablet ( Vitamins Plus Low Iron) Patient History Medical History Glucose intolerance During . Failed 1 hour glucola; Passed 3 hour glucola History of migraine SAB (spontaneous ) x 2 Smoker 1/2 pack per day. (spontaneous vaginal delivery) x 2 Tobacco use disorder Trisomy 21 This . UTI (urinary tract infection) Treated with Macrobid during . Surgical History No significant past surgical history [place] teeth extracted Social History (Updated 08/25/21 @ 08:28 by Cathi Frankel RN) Smoking Status: Current every day smoker Tobacco Type: Cigarettes Age Started Using Tobacco: 16; packs per day: 10; Cigarettes Per Day: 10; Do You Dip or Chew Tobacco: No; Hx Alcohol Use: No Hx Substance Use: No Preferred Language: Uzbek Communication Ability: Effective Face Man Required: No Beliefs That Will Affect Care: None marital status: marital status details: Single Current Living Situation: Family Current Living Situation Comment: Lives with 2 children 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[employer] Other Information That Helps Us Care for You: No Feels Safe at Home: Yes Safety Concerns: Feels Safe At This Time Assistive Devices: None Physical Exam Constitutional: well developed and well nourished Eyes: PERRL, conjunctivae normal, anicteric sclerae Respiratory: normal respiratory effort, lungs clear to auscultation Cardiovascular: RRR, no murmur, no edema Chest (Breasts): Chest: normal inspection of chest Gastrointestinal (Abdomen): normal bowel sounds, soft, nontender, no hepatosplenomegaly Skin: no rashes, warm and dry normal turgor Genitourinary: no vaginal lesions, no adnexal mass normal external appearance OB Exam Abdomen: + vertex Manual OB Exam: + cervical dilation fingertip, + cervical effacement 50% and + station high OB Exam Monitor Tracing: + external FHT monitor used Lymphatic: no cervical or axillary lymphadenopathy Results & Data ([facility]) Vital Signs (Past 12 Hours) Vital Signs Temp Pulse Resp BP 08/25/21 08:29 36.7 C 20 08/25/21 09:02 87 140/91 08/25/21 08:52 88 145/90 H 08/25/21 08:42 92 H 147/95 H 08/25/21 08:32 100 H 141/87 H 08/25/21 08:21 84 174/103 H Supervising Physician Co-Signing Physician Notes Admit to L and D Regular diet x 1 IV fluids labs Preeclamptic labs, Total urine Pr/ Cr ration CHEM 7 UA Cervidil placement for cervical ripening Pain meds including epidural eventually as the pt desires Antibiotics for GBS positive status when pt in active labor
[2021-08-25 10:12] LABS: Hematocrit (blood only) 38.7 % (34.1-44.9); Hemoglobin 13.4 g/dl (12.0-16.0); Mean Corpuscular Hemoglobin 28.8 pg (25.0-34.0); Mean Corpuscular Hgb Conc 34.6 g/dL (32.0-36.0); Mean Corpuscular Volume 83.2 fL (80.0-100.0); Mean Platelet Volume 9.6 fL (9.4-12.3); Platelet Count 313 K/uL (130-400); RDW Coefficient of Variation 14.3 % (11.5-14.5); RDW Standard Deviation 43.4 fL (36.4-46.3); Red Blood Count 4.65 M/uL (3.93-5.22); White Blood Count 11.39 K/ul (4.8-10.8)
[2021-08-25 10:33] LABS: Albumin Globulin Ratio 1.1 (0.9-2); Albumin Level 3.3 gm/dl (3.4-5.0); Bilirubin,Total 0.4 mg/dl (0.2-1.0); Calcium 9.3 mg/dl (8.5-10.1); Creatinine Clr Calc Pharmacy 169.6 ml/min; Est GFR (African American) 142.6 ml/min; Globulin 3.1 gm/dl (2.5-4.0); Potassium 3.9 mmol/L (3.5-5.1); Total Protein 6.4 gm/dl (6.0-8.3)
[2021-08-25] MEDS ORDERED: PENICILLIN G POTASSIUM 6 MU in DEXTROSE 5% 250 ML IV STA (10:36)
[2021-08-25] MEDS: LACTATED RINGER'S 1,000 ML IV PRN ×2 (10:46→17:25)
[2021-08-25 11:19] LABS: Creatinine Urine Random 52.4 mg/dl; Protein Creatinine Ratio Urine 0.5 (0-0.2); Total Protein Urine Random 26.5 mg/dl (0-11.9)
[2021-08-25 11:26] LABS: Appearance Urine Clear (Clear); Bacteria Urine Automated Negative (Negative); Bilirubin Urine Negative (Negative); Blood Urine Negative (Negative); Color Urine Yellow; Epithelial Cell Urine Auto >30 /lpf (0-5); Glucose Urine UA Negative (Negative); Ketones Urine Negative (Negative); Leukocyte Esterase Urine 1+ (Negative); Nitrite Urine Negative (Negative); Protein Urine Trace (Negative); RBC Urine Automated 0-4 /hpf (0-4); Specific Gravity Urine 1.011 (1.000-1.030); Urobilinogen Urine Negative (Negative); pH Urine 7.5 (4.5-7.5)
[2021-08-25] MEDS ORDERED: OXYTOCIN 30 UNITS/500 ML BAG IV SCH ×2 (13:30)
--- NOTE | 2021-08-25 19:26 | Labor Progress Brief Note ---
Date of Service August 25, 2021 Assessment & Plan (1) Normal labor: Plan Continue Pitocin to augment labor pain meds including epidural as the pt desires Admission and Anticipated Discharge Date Admission Date: August 25, 2021 Physical Exam Genitourinary: OB Exam Abdomen: + vertex Manual OB Exam: + cervical dilation 3 cm, + cervical effacement 70% and + station high OB Exam Monitor Tracing: + external uterine monitor used and + category I 140s, Good variability, positive accelerations Results & Data ([facility]) Vital Signs (Past 12 Hours) Vital Signs Temp Pulse Resp BP 08/25/21 08:29 36.7 C 20 08/25/21 18:44 78 20 127/76 08/25/21 17:50 93 H 18 158/87 H 08/25/21 17:46 88 169/86 H 08/25/21 16:44 81 18 125/76 08/25/21 15:47 77 18 129/87 08/25/21 15:45 78 18 126/79 08/25/21 14:36 36.7 C 78 20 133/79 08/25/21 13:07 81 18 120/64 08/25/21 11:23 77 137/84 08/25/21 11:08 36.7 C 76 18 142/77 H 08/25/21 09:02 87 140/91 08/25/21 08:52 88 145/90 H 08/25/21 08:42 92 H 147/95 H 08/25/21 08:32 100 H 141/87 H 08/25/21 08:21 84 174/103 H
[2021-08-25] MEDS ORDERED: BUTORPHANOL TARTRATE 1 MG/ML VIAL ONE (22:35)
[2021-08-25] MEDS ORDERED: BUTORPHANOL TARTRATE 1 MG/ML VIAL IV PRN (22:41)
--- NOTE | 2021-08-25 22:41 | Labor Progress Brief Note ---
Date of Service August 25, 2021 Assessment & Plan (1) Normal labor: Plan Pt seen and exmined. Pt declines epidural at this time. FHR: 140S, Good variability, positive accelerations [place]; q 2 to 3 min SVE: 5 cm/100/0. AROM: Thin meconium. Discontiue Pitocin for now. pain meds including as the pt desires Admission and Anticipated Discharge Date Admission Date: August 25, 2021 Results & Data ([facility]) Vital Signs (Past 12 Hours) Vital Signs Temp Pulse Resp BP 08/25/21 21:33 90 18 136/84 08/25/21 20:27 67 18 144/84 H 08/25/21 19:02 36.7 C 70 18 158/87 H 08/25/21 18:44 78 20 127/76 08/25/21 17:50 93 H 18 158/87 H 08/25/21 17:46 88 169/86 H 08/25/21 16:44 81 18 125/76 08/25/21 15:47 77 18 129/87 08/25/21 15:45 78 18 126/79 08/25/21 14:36 36.7 C 78 20 133/79 08/25/21 13:07 81 18 120/64 08/25/21 11:23 77 137/84 08/25/21 11:08 36.7 C 76 18 142/77 H
[2021-08-25] MEDS: PENICILLIN G POTASSIUM 3 MU in DEXTROSE 5% 100 ML IV PRN (22:58)
[2021-08-26] MEDS ORDERED: ePHEDrine sulfate 50 MG/ML AMP ONE (00:19)
[2021-08-26] MEDS ORDERED: fentaNYL 2MCG/ML ROPIVACAINE 1.25MG/ML 100 ML BAG EPI ONE (00:20)
[2021-08-26] MEDS ORDERED: BUPIVACAINE 0.25% 30 ML VIAL ONE (00:20)
[2021-08-26] MEDS ORDERED: fentaNYL citrate 100 MCG/2 ML VIAL ONE (00:20)
[2021-08-26] MEDS ORDERED: SODIUM CHLORIDE 0.9% INJ 10 ML VIAL ONE (00:20)
[2021-08-26] MEDS ORDERED: LIDOCAINE 2%/EPINEPHRINE 1:200,000 20 ML SDV ONE (00:20)
[2021-08-26] MEDS ORDERED: NALOXONE HCL 1 MG in SODIUM CHLORIDE 0.9% 1000ML 1,000 ML IV PRN (00:27)
[2021-08-26] MEDS ORDERED: NALOXONE HCL 0.4 MG/1 ML VIAL/CARP IV PRN (00:27)
[2021-08-26] MEDS ORDERED: diphenhydrAMINE 50 MG/ML VIAL IV PRN (00:27)
[2021-08-26] MEDS ORDERED: ONDANSETRON INJ 2 MG/ML 2 ML VIAL IV PRN (00:27)
[2021-08-26] MEDS ORDERED: NALBUPHINE HCL INJ 10 MG/ML AMP IV PRN (00:27)
[2021-08-26] MEDS ORDERED: ePHEDrine sulfate 50 MG/ML AMP IV PRN (00:27)
[2021-08-26] MEDS ORDERED: fentaNYL 2MCG/ML ROPIVACAINE 1.25MG/ML 100 ML BAG EPI PRN (00:27)
--- NOTE | 2021-08-26 00:27 | Anesthesiology Consultation ---
Date of Service August 26, 2021 Assessment & Plan Chart Review Chart Review: Acceptable Risk for Labor Epidural Consults Requested none ASA ASA2 Proposed Anesthesia Anesthesia Type: Labor Epidural Risk / Benefits Reviewed With: PT / POA / Parent / Guardian, Accepts Plan and Informed Consent Obtained History Height/Weight Height: 5 ft 7 in Weight: 88.904 kg Allergies Allergy/AdvReac Type Severity Reaction Status Date / Time No Known Allergies Allergy Verified 03/27/21 07:52 Medications Home Medications Medication Instructions Recorded Confirmed Last Taken vitamin with calcium 1 tab PO DAILY 03/27/21 08/25/21 08/22/21 no.72-iron 27 mg-folic acid 1 mg tablet ( Vitamins Plus Low Iron) Active Medications Generic Name Dose Route Start Last Admin Trade Name Freq PRN Reason Stop Dose Admin Butorphanol Tartrate 1 mg 08/25/21 22:41 08/25/21 23:42 Butorphanol Tartrate 1 Mg/Ml Vial IV 09/24/21 22:40 1 mg Q4 PRN Administration Pain Lactated Ringer's 1,000 mls @ 125 mls/hr 08/25/21 09:41 08/25/21 17:25 Lr IV 08/27/21 09:40 125 mls/hr .Q8H PRN Administration L&D Protocol Protocol Penicillin G Potassium 3 mu/ 106 mls @ 100 mls/hr 08/25/21 13:38 08/25/21 22:58 Dextrose IV 09/04/21 13:37 100 mls/hr Q4H PRN Administration GBS(+) Until Delivery Oxytocin 30 units in 500 mls @ 0 mls/hr 08/25/21 13:53 08/25/21 22:32 Pitocin IV 08/27/21 13:52 0 units/hr .Q0M PRN 0 mls/hr Labor Induction/Augmentation Titration Protocol 0 UNITS/HR Past Medical History Medical History Glucose intolerance During . Failed 1 hour glucola; Passed 3 hour glucola History of migraine SAB (spontaneous ) x 2 Smoker 1/2 pack per day. (spontaneous vaginal delivery) x 2 Tobacco use disorder Trisomy 21 This . UTI (urinary tract infection) Treated with Macrobid during . Exercise / Class Metabolic Activity II 4-5 Yardwork/Stairs/Walk up hill Past Surgical History Surgical History No significant past surgical history [place] teeth extracted Past Anesthesia History No Hx of Anesthesia Complications and No Family Hx of Anesthesia Complications History of PONV No Hx of PONV and No Hx of Motion Sickness Social History Smoking Status: Current every day smoker tobacco type: cigarettes Smoking cigarettes per day: 10 Do You Dip or Chew Tobacco: No Hx Alcohol Use: No Hx Substance Use: No Physical Exam Vital Signs Last Vital Signs Temp 98.1 F 08/25/21 22:39 Pulse 75 08/25/21 23:44 Resp 18 08/25/21 23:44 BP 131/67 08/25/21 23:44 ENMT Mouth: no dentition abnormality Thyromental Distance: > or= 3.5 Finger Breadths Mallampati Class: II Neck normal visual inspection Respiratory normal respiratory effort Auscultation: lungs clear to auscultation bilaterally Cardiovascular Rate/Rhythm: regular rate and regular rhythm Testing Laboratory Results 08/25/21 09:58 08/25/21 09:58 Urine Color Yellow 08/25/21 09:17 Urine Appearance Clear (Clear) 08/25/21 09:17 Urine pH 7.5 (4.5-7.5) 08/25/21 09:17 Ur Specific [place] 1.011 (1.000-1.030) 08/25/21 09:17 Urine Protein Trace (Negative) H 08/25/21 09:17 Urine Glucose (UA) Negative (Negative) 08/25/21 09:17 Urine Ketones Negative (Negative) 08/25/21 09:17 Urine Nitrite Negative (Negative) 08/25/21 09:17 Ur Leukocyte Esterase 1+ (Negative) H 08/25/21 09:17 Urine WBC (Auto) 1-5 /hpf (0-5) 08/25/21 09:17 Urine RBC (Auto) 0-4 /hpf (0-4) 08/25/21 09:17 U Hyaline Cast (Auto) 1-5 /lpf (0-5) 08/25/21 09:17 U Epithel Cells (Auto) >30 /lpf (0-5) H 08/25/21 09:17 Urine Bacteria (Auto) Negative (Negative) 08/25/21 09:17
[2021-08-26] MEDS: LACTATED RINGER'S 1,000 ML IV PRN (02:40)
[2021-08-26] MEDS: PENICILLIN G POTASSIUM 3 MU in DEXTROSE 5% 100 ML IV PRN (02:56)
[2021-08-26] MEDS ORDERED: BENZOCAINE 20% AER SPR 82.5 GM CAN EXT PRN (04:40)
[2021-08-26] MEDS ORDERED: OXYTOCIN 30 UNITS/500 ML BAG IV PRN (04:40)
[2021-08-26] MEDS ORDERED: DIPHTHERIA/TETANUS/PERTUSSIS 0.5 ML SYR/VIAL IM ONE (04:40)
[2021-08-26] MEDS ORDERED: HYDROCORTISONE ACETATE 25 MG SUPP PR PRN (04:40)
--- NOTE | 2021-08-26 04:40 | Delivery Summary ---
Vaginal Delivery Summary Date of Service August 26, 2021 Vaginal Delivery Summary Vaginal Delivery Summary DELIVERY NOTE She is a 5, para 2, IUP at 40 weeks. She was brought in for induction of labor with Cervidil with baby having abnormal chromosomal studies/ Downs s yndrome. Pt started on Pitocin, had epidural for pain. she went to full dilatation.Pt fully dilated and pushed for few minutes delivered a live male infant via right occiput anterior, thick meconium noted, infant placed on the mothers abdomen, suctioned the through the mouth and the nose, cord clamped and cut by the support person of the family.. Cord blood was taken. With IV Pitocin running, placenta was removed intact. . The repair consisted of a small primary right labial laceration, which is repaired with 3.0 vicryl.. Following this, sponges were removed from the vagina. There was no hematoma formation. Hemostasis was good. Estimated blood loss 250 mL. Apgars: 8, 9 at 1 and 5 min. sponge and needle count correct.
[2021-08-26] MEDS: IBUPROFEN 600 MG TAB PO PRN ×4 (05:07→19:59)
--- NOTE | 2021-08-26 07:14 | Anesthesia Procedure Note ---
Date of Service August 26, 2021 Anesthesia Post Epidural Note Vital Signs Vital Signs: Temp Pulse Resp BP Pulse Ox 36.8 C 71 18 115/57 L 100 08/26/21 04:09 08/26/21 06:05 08/26/21 06:05 08/26/21 06:05 08/26/21 03:49 Pain Intensity Abdomen: Pain Intensity: 5 Notes Mental Status: alert / awake / arousable and participated in evaluation Patient Amnestic to Procedure: No Nausea / Vomiting: adequately controlled Pain: adequately controlled Airway Patency, RR, SpO2: stable & adequate BP & HR: stable & adequate Hydration State: stable & adequate Neuraxial Anesthesia: was administered and sensory block is resolving Anesthetic Complications: no major complications apparent and Pt Satisfied with anesthetic care Epidural: Removed without complications and With tip intact
[2021-08-26] MEDS: PRENATAL VITAMIN 1 TAB PO SCH (08:57)
[2021-08-26] MEDS: DOCUSATE SODIUM 100 MG CAP PO SCH ×2 (08:57→19:58)
[2021-08-26] MEDS: ACETAMINOPHEN 325 MG TAB PO PRN ×2 (11:57→19:58)
[2021-08-27] MEDS: IBUPROFEN 600 MG TAB PO PRN ×2 (00:26→05:08)
[2021-08-27] MEDS: ACETAMINOPHEN 325 MG TAB PO PRN (05:07)
[2021-08-27] MEDS: PRENATAL VITAMIN 1 TAB PO SCH (07:58)
[2021-08-27] MEDS: DOCUSATE SODIUM 100 MG CAP PO SCH (07:58)
[2021-08-27 08:44] LABS: Hemoglobin 10.4 g/dl (12.0-16.0); Mean Corpuscular Hemoglobin 28.6 pg (25.0-34.0); Mean Corpuscular Hgb Conc 33.5 g/dL (32.0-36.0); Mean Corpuscular Volume 85.2 fL (80.0-100.0); Platelet Count 281 K/uL (130-400); RDW Coefficient of Variation 14.1 % (11.5-14.5); RDW Standard Deviation 43.8 fL (36.4-46.3); Red Blood Count 3.64 M/uL (3.93-5.22); White Blood Count 8.94 K/ul (4.8-10.8)
--- NOTE | 2021-08-27 11:18 | Obstetrical Progress Note ---
Date of Service August 27, 2021 Assessment & Plan (1) Normal course: PPD #1 pt doing well d/c home with instrcutions Subjective Ambulation: ambulating normally Voiding: no voiding problems Passing Gas:: Yes Diet Tolerance:: regular diet Lochia:: Small Feeding Type:: breast feeding Review of Systems All systems reviewed & are unremarkable except as noted in HPI & below Physical Exam Constitutional WD/WN, vitals as above well developed and well nourished Eyes PERRL, conjunctivae normal, anicteric sclerae Neck trachea midline, no thyromegaly Respiratory normal respiratory effort, lungs clear to auscultation Auscultation: no crackles, no rales and no wheezes Cardiovascular RRR, no murmur, no edema Gastrointestinal (Abdomen) normal bowel sounds, soft, nontender, no hepatosplenomegaly Uterus is below umbilicus Musculoskeletal no cyanosis or clubbing, extremities motor strength 5/5 Skin no rashes, warm and dry Neurologic patellar DTR's 2+ bilat, sensation intact Psychiatric A+Ox3, euthymic affect Genitourinary normal external appearance Results & Data ([facility]) Vital Signs (Past 12 Hours) Vital Signs Temp Pulse Resp BP Pulse Ox O2 Del Method 08/27/21 07:55 36.7 C 74 21 140/92 Room Air 08/27/21 05:00 36.6 C 80 18 134/82 98 Room Air 08/27/21 00:25 36.5 C 84 18 135/86 98 Room Air
[2021-08-27] MEDS ORDERED: bisacodyL 5 MG TABEC PO SCH (20:00)
[2021-08-28] MEDS ORDERED: bisacodyL 10 MG SUPP PR PRN
== END 2021-08-27 13:45 | disposition home or self-care (01) | DRG 806 ==
LOC: 4S1 07:58 → 4E2 08-26 08:34